=== PATIENT | female | born 1990 | race Caucasian/White ===

== ENCOUNTER 2021-10-07 06:24 | Day surgery (SDC) | payer OTHER ==
[2021-10-06 10:16] VITALS: BMI 30.8
[~2021-10-07 06:24] MED LIST: LACTATED RINGERS 1,000 ML IV SCH; LIDOCAINE 1% (10MG/ML) FOR IV START INTRADERMA PRN
[2021-10-07 06:51] VITALS: RESP 16; TEMP 96.7
[2021-10-07] MEDS ORDERED: PROPOFOL 10 MG/ML 20 ML VIAL IV ONE (07:26)
[2021-10-07] MEDS ORDERED: LIDOCAINE 2% INJ 20 MG/ML (2 ML VIAL) ONE (07:26)
--- NOTE | 2021-10-07 07:50 | P.PCN ---
Date of Procedure: 10/07/21 Procedure(s) Performed: Brief history: Patient is a pleasant 31-year-old white female scheduled for an elective upper endoscopy as well as colonoscopy as a part of evaluation of chronic diarrhea and iron deficiency anemia. He is been having diarrhea for the last 5 years duration. [place] anywhere from 10-12 a day which are loose to watery in consistency but no blood or mucus in the stool. Procedure performed: Esophagogastroduodenoscopy with biopsy Colonoscopy Preoperative diagnosis: Iron deficiency anemia Chronic diarrhea Anesthesia: MAC Procedure: After informed consent was obtained from the patient was brought into the endoscopy unit and IV sedation was administered by anesthesia under continuous monitoring. Initially upper endoscopy was done. The Olympus GF 160 video endoscope was inserted inserted into the mouth and esophagus intubated without any difficulty and was gradually advanced into the stomach and duodenum and carefully examined. The bulb and second part of the duodenum appeared normal. Abscesses were done from the duodenum to rule out celiac disease. The scope was then withdrawn into the stomach adequately insufflated with air and upon careful examination the antrum and linear erosive erythema which was biopsied. The body, cardia and fundus appeared normal. The scope was then withdrawn into the esophagus. The GE junction was located at 40 cm to the incisors. It appeared regular with no erythema erosions or ulcerations. Rest of the esophagus appeared normal. Patient tolerated the procedure well. At this time the patient continued to remain sedation. Initial digital rectal examination was normal. Olympus CF 160 video colonoscope was then inserted into the rectum and gradually advanced to the cecum without any difficulty. Careful examination was performed as the scope was gradually being withdrawn. The prep was excellent. Terminal ileum was intubated and 20 cm visualized and appeared normal. Mucosa of the cecum, ascending colon, transverse colon, descending colon, sigmoid colon and rectum appeared normal. Retroflexion was performed in the rectum and no lesions were noted. Patient tolerated the procedure well. Impression: 1. Upper Endoscopy revealed mild antral gastritis but no evidence of esophagitis or peptic ulcer disease 2. Colonoscopy was within normal limits with no evidence of colitis or colorectal neoplasia Recommendations: Findings of this examination were discussed with the patient as well as her family. She was advised to follow with the biopsy results. Advised to start her on Imodium [id number] as needed for the chronic diarrhea. If she continues to have persistent symptoms she was advised to follow up in office for further management.
[2021-10-07 08:03] VITALS: PULSE 90
[2021-10-07 08:40] VITALS: BP 120/78
== END 2021-10-07 08:40 | disposition home or self-care (01) ==
LOC: ORWHC2ENDO 06:24
PROVIDERS: ATTEND Internal Medicine Gastroenterology
DX: K29.50 Unspecified chronic gastritis without bleeding (principal)
CPT/HCPCS: 43239; 45378; 81025; 88305; J2704; J2001

== ENCOUNTER 2021-12-25 17:47 | Emergency (ER) | payer OTHER ==
[2021-12-25] MEDS ORDERED: ONDANSETRON 4 MG/2 ML VIAL IVP STA (19:20)
[2021-12-25] MEDS ORDERED: SODIUM CHLORIDE 0.9% 500 ML 500 ML IV STA (19:20)
[2021-12-25] MEDS ORDERED: HYDROmorphone 0.5 MG/0.5 ML SYRINGE IVP STA (19:22)
--- NOTE | 2021-12-25 19:25 | ED ---
Abdominal Pain HPI - General Chief Complaint: Abdominal Pain Stated Complaint: abd pain Time Seen by Provider: 12/25/21 19:05 Source: patient, RN notes reviewed, old records reviewed Mode of arrival: ambulatory Limitations: no limitations - History of Present Illness Initial Comments: This is a well-appearing 31-year-old female sitting crosslegged on the cart complaining of right upper quadrant abdominal pain with epigastric pain that started at 11:00 today. Patient states that she is a history of IBS. She has seen her doctor who recommended evaluation of her gallbladder in the past. She denies any fevers, she does have nausea, no vomiting or diarrhea. MD Complaint: abdominal pain -: hour(s) (8) Location: RUQ, epigastric Radiation: back Severity scale (1-10): 9 Quality: sharp Consistency: constant Improves With: nothing Worsens With: nothing Associated Symptoms: nausea - Related Data Home Medications Medication Instructions Recorded Confirmed Ferrous Sulfate [Iron] 325 mg PO DAILY 10/06/21 10/06/21 Multivitamins, Thera [Multivitamin 1 tab PO DAILY 10/06/21 10/06/21 (formulary)] Previous Rx's Medication Instructions Recorded Ibuprofen [Motrin] 600 mg PO Q8HR PRN #30 tab 12/25/21 Allergies Allergy/AdvReac Type Severity Reaction Status Date / Time Latex, Natural Rubber Allergy Swelling Verified 12/25/21 18:25 Review of Systems ROS Statement: Those systems with pertinent positive or pertinent negative responses have been documented in the HPI. ROS Other: All systems not noted in ROS Statement are negative. Past Medical History Additional Past Medical History / Comment(s): ANEMIA, IBS History of Any Multi-Drug Resistant Organisms: None Reported Past Surgical History: No Surgical Hx Reported Past Anesthesia/Blood Transfusion Reactions: Motion Sickness Additional Past Anesthesia/Blood Transfusion Reaction / Comment(s): NO PREVIOUS ANESTH. Past Psychological History: No Psychological Hx Reported Smoking Status: Never smoker Past Alcohol Use History: None Reported Past Drug Use History: Marijuana General Exam Limitations: no limitations General appearance: alert, in no apparent distress Head exam: Present: atraumatic Eye exam: Absent: scleral icterus, conjunctival injection Neck exam: Present: full ROM Respiratory exam: Absent: normal lung sounds bilaterally, respiratory distress, accessory muscle use Cardiovascular Exam: Present: regular rate GI/Abdominal exam: Present: soft, tenderness (Right upper quadrant epigastric). Absent: distended, guarding, rigid Extremities exam: Present: normal capillary refill. Absent: pedal edema Neurological exam: Present: alert, oriented X3 Psychiatric exam: Present: normal affect, normal mood Skin exam: Present: warm, dry, normal color. Absent: cyanosis, diaphoretic Course Vital Signs 12/25/21 12/25/21 18:21 21:00 Temperature 98.1 F 98.6 F Pulse Rate 86 72 Respiratory 16 18 Rate Blood Pressure 145/94 120/81 O2 Sat by Pulse 100 99 Oximetry Medical Decision Making - Medical Decision Making Ultrasound gallbladder shows cholelithiasis without evidence of cholecystitis. Electrolytes are unremarkable. Hemoglobin and hematocrit are stable. Patient was given IV fluids, Zofran and Dilaudid for pain. CBC and CMP unremarkable. Vital signs are stable. Case discussed with Dr. Duff, patient will be directed to follow up with her primary care doctor to have a HIDA scan and follow up with Dr. Leach with GI. Patient is agreeable to this plan of care. Strict return parameters were discussed to return if increased pain, fevers or persistent nausea vomiting. Patient is agreeable to this plan - Lab Data Result diagrams: 12/25/21 19:36 12/25/21 19:36 Lab Results 12/25/21 12/25/21 12/25/21 Range/Units 19:36 19:36 19:36 WBC 11.7 H (3.8-10.6) k/uL RBC 5.08 (3.80-5.40) m/uL Hgb 14.1 (11.4-16.0) gm/dL Hct 43.3 (34.0-46.0) % MCV 85.2 (80.0-100.0) fL MCH 27.8 (25.0-35.0) pg MCHC 32.6 (31.0-37.0) g/dL RDW 12.8 (11.5-15.5) % Plt Count 365 (150-450) k/uL MPV 7.4 Neutrophils % 59 % Lymphocytes % 30 % Monocytes % 3 % Eosinophils % 6 % Basophils % 1 % Neutrophils # 6.9 (1.3-7.7) k/uL Lymphocytes # 3.6 (1.0-4.8) k/uL Monocytes # 0.4 (0-1.0) k/uL Eosinophils # 0.6 (0-0.7) k/uL Basophils # 0.1 (0-0.2) k/uL PT 9.7 (9.0-12.0) sec INR 0.9 (<1.2) APTT 24.8 (22.0-30.0) sec Sodium (137-145) mmol/L Potassium (3.5-5.1) mmol/L Chloride (98-107) mmol/L Carbon Dioxide (22-30) mmol/L Anion Gap mmol/L BUN (7-17) mg/dL Creatinine (0.52-1.04) mg/dL Est GFR (CKD-EPI)AfAm (>60 ml/min/1.73 sqM) Est GFR (CKD-EPI)NonAf (>60 ml/min/1.73 sqM) Glucose (74-99) mg/dL Calcium (8.4-10.2) mg/dL Total Bilirubin (0.2-1.3) mg/dL AST (14-36) U/L ALT (4-34) U/L Alkaline Phosphatase (38-126) U/L Total Protein (6.3-8.2) g/dL Albumin (3.5-5.0) g/dL Amylase (30-110) U/L Lipase (23-300) U/L Urine Color Yellow Urine Appearance Clear (Clear) Urine pH 6.5 (5.0-8.0) Ur Specific [place] 1.024 (1.001-1.035) Urine Protein Negative (Negative) Urine Glucose (UA) Negative (Negative) Urine Ketones Negative (Negative) Urine Blood Negative (Negative) Urine Nitrite Negative (Negative) Urine Bilirubin Negative (Negative) Urine Urobilinogen <2.0 (<2.0) mg/dL Ur Leukocyte Esterase Small H (Negative) Urine RBC 2 (0-5) /hpf Urine WBC 1 (0-5) /hpf Ur Squamous Epith Cells 4 (0-4) /hpf Urine Bacteria Rare H (None) /hpf Urine Mucus Occasional H (None) /hpf 12/25/21 Range/Units 19:36 WBC (3.8-10.6) k/uL RBC (3.80-5.40) m/uL Hgb (11.4-16.0) gm/dL Hct (34.0-46.0) % MCV (80.0-100.0) fL MCH (25.0-35.0) pg MCHC (31.0-37.0) g/dL RDW (11.5-15.5) % Plt Count (150-450) k/uL MPV Neutrophils % % Lymphocytes % % Monocytes % % Eosinophils % % Basophils % % Neutrophils # (1.3-7.7) k/uL Lymphocytes # (1.0-4.8) k/uL Monocytes # (0-1.0) k/uL Eosinophils # (0-0.7) k/uL Basophils # (0-0.2) k/uL PT (9.0-12.0) sec INR (<1.2) APTT (22.0-30.0) sec Sodium 138 (137-145) mmol/L Potassium 4.1 (3.5-5.1) mmol/L Chloride 104 (98-107) mmol/L Carbon Dioxide 22 (22-30) mmol/L Anion Gap 12 mmol/L BUN 10 (7-17) mg/dL Creatinine 0.68 (0.52-1.04) mg/dL Est GFR (CKD-EPI)AfAm >90 (>60 ml/min/1.73 sqM) Est GFR (CKD-EPI)NonAf >90 (>60 ml/min/1.73 sqM) Glucose 107 H (74-99) mg/dL Calcium 9.6 (8.4-10.2) mg/dL Total Bilirubin 0.2 (0.2-1.3) mg/dL AST 28 (14-36) U/L ALT 35 H (4-34) U/L Alkaline Phosphatase 54 (38-126) U/L Total Protein 7.4 (6.3-8.2) g/dL Albumin 4.4 (3.5-5.0) g/dL Amylase 72 (30-110) U/L Lipase 188 (23-300) U/L Urine Color Urine Appearance (Clear) Urine pH (5.0-8.0) Ur Specific [place] (1.001-1.035) Urine Protein (Negative) Urine Glucose (UA) (Negative) Urine Ketones (Negative) Urine Blood (Negative) Urine Nitrite (Negative) Urine Bilirubin (Negative) Urine Urobilinogen (<2.0) mg/dL Ur Leukocyte Esterase (Negative) Urine RBC (0-5) /hpf Urine WBC (0-5) /hpf Ur Squamous Epith Cells (0-4) /hpf Urine Bacteria (None) /hpf Urine Mucus (None) /hpf Disposition Clinical Impression: Cholelithiasis Disposition: HOME SELF-CARE Condition: Good Instructions (If sedation given, give patient instructions): Gallstones (ED) Additional Instructions: Discuss with your primary care doctor a possible HIDA scan for further evaluation of your gallbladder and bile ducts. Follow-up with Dr. Leach for possible cholecystectomy. Return to the emergency room with any fevers, increased pain, or persistent nausea vomiting. Healthy Foods for the Gallbladder: Whether or not you are at risk for gallstones, it's always a good idea to keep your body at a healthy weight and eat a diet that is low in fat and cholesterol, moderate in calories, and high in fiber. All of the following are healthy foods for your gallbladder, as well as the rest of your body: Fresh fruits and vegetables Whole grains (whole-wheat bread, brown rice, oats, bran cereal) Lean meat, poultry, and fish Low-fat dairy products Prescriptions: Ibuprofen [Motrin] 600 mg PO Q8HR PRN #30 tab PRN Reason: Pain Is patient prescribed a controlled substance at d/c from ED?: No Referrals: Holly Kirkland MD [Primary Care Provider] - 1-2 days Time of Disposition: 20:43
[2021-12-25 19:56] LABS: ALT 35 U/L (4-34); AST 28 U/L (14-36); African American GFR (CKD) >90 (>60 ml/min/1.73 sqM); Albumin 4.4 g/dL (3.5-5.0); Alkaline Phosphatase 54 U/L (38-126); Amylase 72 U/L (30-110); Anion Gap 12 mmol/L; Blood Urea Nitrogen 10 mg/dL (7-17); Calcium 9.6 mg/dL (8.4-10.2); Carbon Dioxide 22 mmol/L (22-30); Chloride 104 mmol/L (98-107); Glucose 107 mg/dL (74-99); Lipase 188 U/L (23-300); Non-African American GFR(CKD) >90 (>60 ml/min/1.73 sqM); Potassium 4.1 mmol/L (3.5-5.1); Sodium 138 mmol/L (137-145); Total Bilirubin 0.2 mg/dL (0.2-1.3); Total Protein 7.4 g/dL (6.3-8.2)
[2021-12-25 20:00] LABS: INR 0.9 (<1.2); Partial Thromboplastin Time 24.8 sec (22.0-30.0); Prothrombin Time 9.7 sec (9.0-12.0)
[2021-12-25 20:02] LABS: Basophils # (A) 0.1 k/uL (0-0.2); Basophils % (A) 1 %; Eosinophils # (A) 0.6 k/uL (0-0.7); Eosinophils % (A) 6 %; HCT 43.3 % (34.0-46.0); HGB 14.1 gm/dL (11.4-16.0); Lymphocytes # (A) 3.6 k/uL (1.0-4.8); Lymphocytes % (A) 30 %; MCH 27.8 pg (25.0-35.0); MCHC 32.6 g/dL (31.0-37.0); MCV 85.2 fL (80.0-100.0); Mean Platelet Volume 7.4; Monocytes # (A) 0.4 k/uL (0-1.0); Monocytes % (A) 3 %; Neutrophils # (A) 6.9 k/uL (1.3-7.7); Neutrophils % (A) 59 %; Platelet Count 365 k/uL (150-450); RBC 5.08 m/uL (3.80-5.40); RDW 12.8 % (11.5-15.5); WBC 11.7 k/uL (3.8-10.6)
--- NOTE | 2021-12-25 20:15 | US ---
EXAMINATION TYPE: US gallbladder DATE OF EXAM: 12/25/2021 COMPARISON: NONE CLINICAL HISTORY: ruq pain. RUQ pain with nausea since this morning. TECHNIQUE: Multiple sonographic images of the right upper quadrant are obtained. FINDINGS: EXAM MEASUREMENTS: Liver Length: 16.1 cm Gallbladder Wall: 0.20 cm CBD: 0.46 cm Right Kidney: 11.7 x 5.5 x 4.0 cm REFINERY SUPERINTENDENT NOTES: Pancreas: wnl Liver: wnl Gallbladder: Nonmobile gallstone seen in the neck measuring 1.3 x 1.2 x 1.4 cm Evidence for sonographic Hollis's sign: No CBD: wnl Right Kidney: wnl IMPRESSION: Cholelithiasis without sonographic evidence for acute abnormality or cholecystitis.
[2021-12-25 20:31] LABS: Appearance,Urine Clear (Clear); Bacteria,Urine Rare /hpf; Bilirubin,Urine Negative (Negative); Blood,Urine Negative (Negative); Color,Urine Yellow; Glucose,Urine (UA) Negative (Negative); Ketones,Urine Negative (Negative); Leukocyte Esterase,Urine Small (Negative); Mucus,Urine Occasional /hpf; Nitrite,Urine Negative (Negative); PH, Urine 6.5 (5.0-8.0); Protein,Urine Negative (Negative); RBC,Urine 2 /hpf (0-5); Specific Gravity,Urine 1.024 (1.001-1.035); Squamous Epithelial Cell,Urine 4 /hpf (0-4); Urobilinogen,Urine <2.0 mg/dL (<2.0); WBC,Urine 1 /hpf (0-5)
[2021-12-25 21:05] VITALS: BP 120/81; PULSE 72; RESP 18; TEMP 98.6
== END 2021-12-25 21:06 | disposition home or self-care (01) ==
LOC: EC 17:47
DX: K80.20 Calculus of gallbladder without cholecystitis without obstruction (principal); Z91.040 Latex allergy status
CPT/HCPCS: 36415; 80053; 82150; 83690; 85025; 85610; 85730; 81001; 76705; 99284; 96374; 96375; 96361; J2405; J1170

== ENCOUNTER → 2022-02-02 | Outpatient (CLI) | payer OTHER ==
--- NOTE | 2022-02-02 13:54 | NM ---
EXAMINATION TYPE: NM hepatobiliary wo EF DATE OF EXAM: 02/02/2022 COMPARISON: NONE INDICATION: Cholelithiasis TECHNIQUE: After the intravenous administration of 4.97 mCi Tc 99m Mebrofenin hepatobiliary scintigra phy is performed. Images were obtained immediately post injection. FINDINGS: There is prompt uptake and excretion of radiotracer by the liver. Extrahepatic ducts are identified at less than 2 minutes. The gallbladder is not visualized within 120 minutes or on 4 hour delays. Small bowel activity is noted within 2 minutes. IMPRESSION: 1. Nonvisualization of the gallbladder. Cystic duct obstruction should be considered. A Yellow level critical message alert has been initiated for Holly Kirkland MD via the [employer] Critical Results System on 02/02/2022 10:52 AM. This message alert has been sent to Holly Kirkland MD via the preferences provided by the clinician for the receipt of Radiology Critical Findings. Mess age ID [id number].
== END | disposition home or self-care (01) ==
LOC: RADNMMAIN 06:56
PROVIDERS: ATTEND Family Medicine
DX: K80.80 Other cholelithiasis without obstruction (principal)
CPT/HCPCS: 78226; A9537

== ENCOUNTER 2022-02-03 18:55 | Emergency (ER) | payer OTHER ==
[2022-02-03 19:56] VITALS: BP 144/92; PULSE 100; RESP 20; TEMP 98.2
[2022-02-03] MEDS ORDERED: KETOROLAC 15 MG/ML 1 ML VIAL IVP STA (21:35)
[2022-02-03] MEDS ORDERED: MORPHINE SULFATE 2 MG/ML SYRINGE IVP STA (21:35)
--- NOTE | 2022-02-03 21:52 | ED ---
Abdominal Pain HPI - General Chief Complaint: Abdominal Pain Stated Complaint: PCP sent for emergency surgery Time Seen by Provider: 02/03/22 21:26 Source: patient Mode of arrival: ambulatory Limitations: no limitations - History of Present Illness Initial Comments: This patient is a 31-year-old woman who states she was told to come to the hospital by her physician who had received a call about the HIDA scan that the patient had today. The patient has been having weeks of upper abdominal pain that radiates to her back. She had an ultrasound that indicated she had gallstones, and then she went for HIDA scan today. The patient also saw Dr. Bartlett, to schedule surgery to have her gallbladder removed. The patient states that her physician Dr. Kirkland called her tonight and told her that she should go to the emergency department as the HIDA scan did not show her gallbladder. The patient states that she does continue to have the upper abdominal pain radiating to the back. She is not having fever or chills. There has been some nausea and no vomiting. She has not had change in bowel movements or urination. She states that she does have tramadol she's been taking at home but it really is not helping her pain much at all. MD Complaint: abdominal pain -: week(s) Location: RUQ, epigastric Radiation: back Migration to: no migration Severity: moderate Quality: aching Consistency: intermittent Improves With: nothing Worsens With: nothing Associated Symptoms: denies other symptoms - Related Data Home Medications Medication Instructions Recorded Confirmed Ferrous Sulfate [Iron] 325 mg PO DAILY 10/06/21 10/06/21 Multivitamins, Thera [Multivitamin 1 tab PO DAILY 10/06/21 10/06/21 (formulary)] Previous Rx's Medication Instructions Recorded Ibuprofen [Motrin] 600 mg PO Q8HR PRN #30 tab 12/25/21 HYDROcodone/APAP 5-325MG [[place] 1 tab PO Q4HR PRN 3 Days #18 tab 02/03/22 5-325] Allergies Allergy/AdvReac Type Severity Reaction Status Date / Time Latex, Natural Rubber Allergy Swelling Verified 02/03/22 19:56 Review of Systems ROS Statement: Those systems with pertinent positive or pertinent negative responses have been documented in the HPI. ROS Other: All systems not noted in ROS Statement are negative. Constitutional: Denies: fever, chills Respiratory: Denies: cough, dyspnea Cardiovascular: Denies: chest pain, palpitations Gastrointestinal: Reports: abdominal pain, nausea. Denies: vomiting, diarrhea, constipation, melena, hematochezia Genitourinary: Denies: dysuria, frequency, hematuria Musculoskeletal: Denies: back pain Skin: Denies: rash Neurological: Denies: headache, weakness, numbness Past Medical History Additional Past Medical History / Comment(s): ANEMIA, IBS History of Any Multi-Drug Resistant Organisms: None Reported Past Surgical History: No Surgical Hx Reported Past Anesthesia/Blood Transfusion Reactions: Motion Sickness Additional Past Anesthesia/Blood Transfusion Reaction / Comment(s): NO PREVIOUS ANESTH. Past Psychological History: No Psychological Hx Reported Smoking Status: Never smoker Past Alcohol Use History: None Reported Past Drug Use History: Marijuana General Exam Limitations: no limitations General appearance: alert, in no apparent distress Head exam: Present: atraumatic, normocephalic Eye exam: Present: normal appearance. Absent: scleral icterus, conjunctival injection Neck exam: Present: normal inspection Respiratory exam: Present: normal lung sounds bilaterally. Absent: respiratory distress, wheezes, rales, rhonchi, stridor Cardiovascular Exam: Present: regular rate, normal rhythm, normal heart sounds. Absent: systolic murmur, diastolic murmur, rubs, gallop GI/Abdominal exam: Present: soft, tenderness. Absent: distended, guarding, rebound, rigid, mass, pulsatile mass, hernia Extremities exam: Present: normal inspection, normal capillary refill. Absent: pedal edema, calf tenderness Back exam: Present: normal inspection. Absent: CVA tenderness (R), CVA tenderness (L) Neurological exam: Present: alert Skin exam: Present: warm, dry, intact, normal color. Absent: rash Course Vital Signs 02/03/22 19:54 Temperature 98.2 F Pulse Rate 100 Respiratory 20 Rate Blood Pressure 144/92 O2 Sat by Pulse 98 Oximetry Medical Decision Making - Medical Decision Making Patient's 31-year-old woman with abdominal pain and HIDA scan showing obst ruction. I went over the results with Dr. Bartlett, who states that she will have the patient's surgical date moved forward. Patient is to call the morning to reschedule. On reevaluation, patient has had good relief of symptoms with the analgesic here. - Lab Data Result diagrams: 02/03/22 21:50 09/20/22 21:50 Lab Results 02/03/22 02/03/22 02/03/22 Range/Units 21:50 21:50 21:50 WBC 12.0 H (3.8-10.6) k/uL RBC 4.94 (3.80-5.40) m/uL Hgb 13.9 (11.4-16.0) gm/dL Hct 42.2 (34.0-46.0) % MCV 85.4 (80.0-100.0) fL MCH 28.0 (25.0-35.0) pg MCHC 32.8 (31.0-37.0) g/dL RDW 12.8 (11.5-15.5) % Plt Count 322 (150-450) k/uL MPV 7.7 Neutrophils % 49 % Lymphocytes % 39 % Monocytes % 3 % Eosinophils % 6 % Basophils % 1 % Neutrophils # 5.9 (1.3-7.7) k/uL Lymphocytes # 4.7 (1.0-4.8) k/uL Monocytes # 0.4 (0-1.0) k/uL Eosinophils # 0.7 (0-0.7) k/uL Basophils # 0.1 (0-0.2) k/uL Sodium (137-145) mmol/L Potassium (3.5-5.1) mmol/L Chloride (98-107) mmol/L Carbon Dioxide (22-30) mmol/L Anion Gap mmol/L BUN (7-17) mg/dL Creatinine (0.52-1.04) mg/dL Est GFR (CKD-EPI)AfAm (>60 ml/min/1.73 sqM) Est GFR (CKD-EPI)NonAf (>60 ml/min/1.73 sqM) Glucose (74-99) mg/dL Calcium (8.4-10.2) mg/dL Total Bilirubin (0.2-1.3) mg/dL AST (14-36) U/L ALT (4-34) U/L Alkaline Phosphatase (38-126) U/L Total Protein (6.3-8.2) g/dL Albumin (3.5-5.0) g/dL Amylase (30-110) U/L Lipase (23-300) U/L Urine Color Yellow Urine Appearance Clear (Clear) Urine pH 6.0 (5.0-8.0) Ur Specific [place] 1.027 (1.001-1.035) Urine Protein Trace H (Negative) Urine Glucose (UA) Negative (Negative) Urine Ketones Negative (Negative) Urine Blood Negative (Negative) Urine Nitrite Negative (Negative) Urine Bilirubin Negative (Negative) Urine Urobilinogen <2.0 (<2.0) mg/dL Ur Leukocyte Esterase Negative (Negative) Urine HCG, Qual Not Detected (Not Detectd) 02/03/22 Range/Units 21:50 WBC (3.8-10.6) k/uL RBC (3.80-5.40) m/uL Hgb (11.4-16.0) gm/dL Hct (34.0-46.0) % MCV (80.0-100.0) fL MCH (25.0-35.0) pg MCHC (31.0-37.0) g/dL RDW (11.5-15.5) % Plt Count (150-450) k/uL MPV Neutrophils % % Lymphocytes % % Monocytes % % Eosinophils % % Basophils % % Neutrophils # (1.3-7.7) k/uL Lymphocytes # (1.0-4.8) k/uL Monocytes # (0-1.0) k/uL Eosinophils # (0-0.7) k/uL Basophils # (0-0.2) k/uL Sodium 136 L (137-145) mmol/L Potassium 3.6 (3.5-5.1) mmol/L Chloride 102 (98-107) mmol/L Carbon Dioxide 22 (22-30) mmol/L Anion Gap 12 mmol/L BUN 10 (7-17) mg/dL Creatinine 0.68 (0.52-1.04) mg/dL Est GFR (CKD-EPI)AfAm >90 (>60 ml/min/1.73 sqM) Est GFR (CKD-EPI)NonAf >90 (>60 ml/min/1.73 sqM) Glucose 91 (74-99) mg/dL Calcium 9.5 (8.4-10.2) mg/dL Total Bilirubin 0.4 (0.2-1.3) mg/dL AST 22 (14-36) U/L ALT 28 (4-34) U/L Alkaline Phosphatase 53 (38-126) U/L Total Protein 6.9 (6.3-8.2) g/dL Albumin 4.2 (3.5-5.0) g/dL Amylase 59 (30-110) U/L Lipase 80 (23-300) U/L Urine Color Urine Appearance (Clear) Urine pH (5.0-8.0) Ur Specific [place] (1.001-1.035) Urine Protein (Negative) Urine Glucose (UA) (Negative) Urine Ketones (Negative) Urine Blood (Negative) Urine Nitrite (Negative) Urine Bilirubin (Negative) Urine Urobilinogen (<2.0) mg/dL Ur Leukocyte Esterase (Negative) Urine HCG, Qual (Not Detectd) Disposition Clinical Impression: Abdominal pain Disposition: HOME SELF-CARE Condition: Good Instructions (If sedation given, give patient instructions): Abdominal Pain (ED) Additional Instructions: As we discussed, call the office of Dr. Bartlett to have your surgical date moved up. Should any of the symptoms we discussed develop return immediately. Prescriptions: HYDROcodone/APAP 5-325MG [[place] 5-325] 1 tab PO Q4HR PRN 3 Days #18 tab PRN Reason: Pain Is patient prescribed a controlled substance at d/c from ED?: No Referrals: Holly Kirkland MD [Primary Care Provider] - 1-2 days Asha Bartlett DO [Doctor of Osteopathic Medicine] - 1-2 days
[2022-02-03 22:08] LABS: Basophils # (A) 0.1 k/uL (0-0.2); Basophils % (A) 1 %; Eosinophils # (A) 0.7 k/uL (0-0.7); Eosinophils % (A) 6 %; HCT 42.2 % (34.0-46.0); HGB 13.9 gm/dL (11.4-16.0); Lymphocytes # (A) 4.7 k/uL (1.0-4.8); Lymphocytes % (A) 39 %; MCHC 32.8 g/dL (31.0-37.0); MCV 85.4 fL (80.0-100.0); Mean Platelet Volume 7.7; Monocytes # (A) 0.4 k/uL (0-1.0); Monocytes % (A) 3 %; Neutrophils # (A) 5.9 k/uL (1.3-7.7); Neutrophils % (A) 49 %; Platelet Count 322 k/uL (150-450); RBC 4.94 m/uL (3.80-5.40); RDW 12.8 % (11.5-15.5)
[2022-02-03 22:26] LABS: ALT 28 U/L (4-34); AST 22 U/L (14-36); African American GFR (CKD) >90 (>60 ml/min/1.73 sqM); Albumin 4.2 g/dL (3.5-5.0); Alkaline Phosphatase 53 U/L (38-126); Amylase 59 U/L (30-110); Anion Gap 12 mmol/L; Appearance,Urine Clear (Clear); Bilirubin,Urine Negative (Negative); Blood Urea Nitrogen 10 mg/dL (7-17); Blood,Urine Negative (Negative); Calcium 9.5 mg/dL (8.4-10.2); Carbon Dioxide 22 mmol/L (22-30); Chloride 102 mmol/L (98-107); Color,Urine Yellow; Glucose 91 mg/dL (74-99); Glucose,Urine (UA) Negative (Negative); Ketones,Urine Negative (Negative); Leukocyte Esterase,Urine Negative (Negative); Lipase 80 U/L (23-300); Nitrite,Urine Negative (Negative); Non-African American GFR(CKD) >90 (>60 ml/min/1.73 sqM); Potassium 3.6 mmol/L (3.5-5.1); Protein,Urine Trace (Negative); Sodium 136 mmol/L (137-145); Specific Gravity,Urine 1.027 (1.001-1.035); Total Bilirubin 0.4 mg/dL (0.2-1.3); Total Protein 6.9 g/dL (6.3-8.2); Urobilinogen,Urine <2.0 mg/dL (<2.0)
== END 2022-02-03 22:57 | disposition home or self-care (01) ==
LOC: EC 18:55
DX: R10.13 Epigastric pain (principal); F12.90 Cannabis use, unspecified, uncomplicated; Z91.040 Latex allergy status; Z79.899 Other long term (current) drug therapy
CPT/HCPCS: 36415; 80053; 82150; 83690; 85025; 81003; 81025; 99284; 96374; 96375; J2270; J1885

== ENCOUNTER 2022-02-09 12:54 | Day surgery (SDC) | payer OTHER ==
[~2022-02-09 12:54] MED LIST changes: +DEXAMETHASONE SOD PHOSPHATE 4 MG/ML 1 ML VIAL IV ONE; -LACTATED RINGERS 1,000 ML IV SCH; -LIDOCAINE 1% (10MG/ML) FOR IV START INTRADERMA PRN; +MIDAZOLAM 2 MG/2 ML VIAL IV PRN; +ONDANSETRON 4 MG/2 ML VIAL IVP ONE; +SCOPOLAMINE 1 MG/72 HR PATCH TRANSDERM ONE
[2022-02-09] MEDS: LACTATED RINGERS 1,000 ML IV SCH ×2 (13:30→14:12)
[2022-02-09] MEDS ORDERED: PROPOFOL 10 MG/ML 20 ML VIAL IV ONE (14:09)
[2022-02-09] MEDS ORDERED: MIDAZOLAM 2 MG/2 ML VIAL ONE (14:09)
[2022-02-09] MEDS ORDERED: SUCCINYLCHOLINE CHLORIDE 200 MG/10 ML VIAL IV ONE (14:09)
[2022-02-09] MEDS ORDERED: LIDOCAINE 2% INJ 20 MG/ML (2 ML VIAL) ONE (14:09)
[2022-02-09] MEDS ORDERED: fentaNYL (PF) 50 MCG/ML 2 ML AMP ONE (14:09)
[2022-02-09] MEDS ORDERED: ROCURONIUM 10 MG/ML (5 ML VIAL) IV ONE (14:09)
[2022-02-09] MEDS ORDERED: GLYCOPYRROLATE 0.2 MG/ML 2 ML VIAL ONE (14:09)
[2022-02-09] MEDS ORDERED: NEOSTIGMINE 1 MG/ML 10 ML VIAL ONE (14:09)
[2022-02-09] MEDS ORDERED: KETOROLAC 15 MG/ML 1 ML VIAL ONE (14:09)
[2022-02-09] MEDS ORDERED: BUPIVACAIN-EPI 0.25%-1:200,000 30 ML VIAL SQ ONE (14:14)
--- NOTE | 2022-02-09 15:16 | P.OP ---
Date of Procedure: 02/09/22 Preoperative Diagnosis: Cholelithiasis, nonvisualization of gallbladder on HIDA scan Postoperative Diagnosis: Cholelithiasis, nonvisualization of gallbladder on HIDA scan Procedure(s) Performed: Laparoscopic cholecystectomy Anesthesia: ISIDRO Surgeon: Asha Bartlett Estimated Blood Loss (ml): 10 Pathology: other Condition: stable Disposition: PACU Indications for Procedure: Patient presented with abdominal pain. Ultrasound showed cholelithiasis. A HIDA scan was performed showing nonvisualization of the gallbladder Description of Procedure: Patient's taken the operative suite where she is prepped and draped in the usual sterile manner under general endotracheal anesthetic. An infraumbilical incision was made and a Veress needle was placed into the abdominal cavity. Pneumoperitoneum was established with CO2 gas. Sites are chosen for accessory trochars needs are placed through small skin incisions. The abdominal and pelvic contents were examined. The liver, diaphragm, large and small bowel were all grossly normal where they were seen. The fundus of the gallbladder is grasped and retracted superiorly. Nicole's pouch is identified, it is grasped and retracted laterally. The cystic artery and cystic duct are dissected free. They're triply clipped and cut. The gallbladder is then dissected free from the liver bed. Small bleeding points were controlled with electrocautery. The gallbladder is removed through the umbilical port site. The liver bed is reexamined and noted be hemostatic. The pneumoperitoneum was released. The trochars were removed. The fascia at the umbilicus was closed with 0 Vicryl. The skin incisions were closed with 4-0 Vicryl in a subcuticular manner. Steri- Strips and dressings were applied. She tolerated the procedure without difficulty and was taken to recovery room in satisfactory condition. According to or personnel, all counts are correct. Plan - Discharge Summary Discharge Rx Participant: No New Discharge Prescriptions: New HYDROcodone/APAP 5-325MG [[place] 5-325] 1 - 2 tab PO Q4H PRN #15 tab PRN Reason: Pain No Action Ferrous Sulfate [Iron] 325 mg PO DAILY Ibuprofen [Motrin] 600 mg PO Q8HR PRN #30 tab PRN Reason: Pain HYDROcodone/APAP 5-325MG [[place] 5-325] 1 tab PO Q4HR PRN 3 Days #18 tab PRN Reason: Pain Multivitamins, Thera [Multivitamin (formulary)] 1 tab PO DAILY traMADol HCl [Ultram] 1 tab PO BID PRN PRN Reason: Pain Discharge Medication List Ferrous Sulfate [Iron] 325 mg PO DAILY 10/06/21 [History] Multivitamins, Thera [Multivitamin (formulary)] 1 tab PO DAILY 10/06/21 [History] Ibuprofen [Motrin] 600 mg PO Q8HR PRN #30 tab 12/25/21 [Rx] HYDROcodone/APAP 5-325MG [[place] 5-325] 1 tab PO Q4HR PRN 3 Days #18 tab 02/03/22 [Rx] traMADol HCl [Ultram] 1 tab PO BID PRN 02/06/22 [History] HYDROcodone/APAP 5-325MG [[place] 5-325] 1 - 2 tab PO Q4H PRN #15 tab 02/09/22 [Rx] Follow up Appointment(s)/Referral(s): Asha Bartlett DO [Doctor of Osteopathic Medicine] - 2 Weeks Patient Instructions/Handouts: *Surgery [facility] - Scopalamine Patch Instructions Activity/Diet/Wound Care/Special Instructions: Ice to the incision for the next 24-48 hours. The dressings on until Wednesday, then may be be removed and you may shower. No tub bath or swimming for 1 week. Expect some bruising by the bellybutton. Low-fat diet. Call if questions or concerns Discharge Disposition: HOME SELF-CARE
[2022-02-09] MEDS: HYDROmorphone 0.5 MG/0.5 ML SYRINGE IVP PRN ×2 (15:33→15:58)
[2022-02-09] MEDS ORDERED: ONDANSETRON 4 MG/2 ML VIAL IVP ONE (15:33)
[2022-02-09] MEDS ORDERED: LACTATED RINGERS 1,000 ML IV ONE ×2 (15:47)
[2022-02-09 16:07] VITALS: TEMP 98.2
[2022-02-09] MEDS ORDERED: HYDROcodone/APAP 5-325MG 1 EACH TAB ONE (16:39)
[2022-02-09] MEDS ORDERED: HYDROcodone/APAP 5-325MG 1 EACH TAB PO ONE (16:40)
[2022-02-09 16:42] VITALS: RESP 20
[2022-02-09 16:54] VITALS: BP 111/75; PULSE 97
== END 2022-02-09 17:21 | disposition home or self-care (01) ==
LOC: OR 12:54
PROVIDERS: ATTEND Surgery
DX: K80.10 Calculus of gallbladder with chronic cholecystitis without obstruction (principal); D64.9 Anemia, unspecified; K58.9 Irritable bowel syndrome, unspecified; F41.9 Anxiety disorder, unspecified; F12.90 Cannabis use, unspecified, uncomplicated; Z79.52 Long term (current) use of systemic steroids; Z79.83 Long term (current) use of bisphosphonates; Z79.891 Long term (current) use of opiate analgesic; Z91.040 Latex allergy status
CPT/HCPCS: 47562; 81025; 88304; J2250; J0330; J1100; J2710; J0690; J2405; J3010; J1885; J2704; J1170; J2001

== ENCOUNTER 2022-02-11 22:39 | Observation (INO) | payer OTHER ==
[2022-02-11 23:40] LABS: Basophils # (A) 0.1 k/uL (0-0.2); Basophils % (A) 0 %; Eosinophils # (A) 0.1 k/uL (0-0.7); Eosinophils % (A) 1 %; HCT 41.4 % (34.0-46.0); HGB 13.8 gm/dL (11.4-16.0); Lymphocytes # (A) 2.3 k/uL (1.0-4.8); Lymphocytes % (A) 17 %; MCH 28.1 pg (25.0-35.0); MCHC 33.3 g/dL (31.0-37.0); MCV 84.4 fL (80.0-100.0); Mean Platelet Volume 7.6; Monocytes # (A) 0.4 k/uL (0-1.0); Monocytes % (A) 3 %; Neutrophils # (A) 10.9 k/uL (1.3-7.7); Neutrophils % (A) 79 %; Platelet Count 368 k/uL (150-450); RBC 4.91 m/uL (3.80-5.40); RDW 12.4 % (11.5-15.5); WBC 13.8 k/uL (3.8-10.6)
[2022-02-11 23:54] LABS: ALT 76 U/L (4-34); AST 102 U/L (14-36); African American GFR (CKD) >90 (>60 ml/min/1.73 sqM); Albumin 4.3 g/dL (3.5-5.0); Alkaline Phosphatase 71 U/L (38-126); Amylase 43 U/L (30-110); Anion Gap 15 mmol/L; Blood Urea Nitrogen 7 mg/dL (7-17); Calcium 9.6 mg/dL (8.4-10.2); Carbon Dioxide 23 mmol/L (22-30); Chloride 99 mmol/L (98-107); Glucose 119 mg/dL (74-99); Lipase 43 U/L (23-300); Non-African American GFR(CKD) >90 (>60 ml/min/1.73 sqM); Potassium 3.9 mmol/L (3.5-5.1); Sodium 137 mmol/L (137-145); Total Bilirubin 0.4 mg/dL (0.2-1.3); Total Protein 7.2 g/dL (6.3-8.2)
[2022-02-12] MEDS ORDERED: ONDANSETRON 4 MG/2 ML VIAL IVP STA
[2022-02-12] MEDS ORDERED: PANTOPRAZOLE 40 MG/10 ML VIAL IVP STA
--- NOTE | 2022-02-12 00:02 | ED ---
Nausea/Vomiting/Diarrhea HPI - General Chief complaint: Nausea/Vomiting/Diarrhea Stated complaint: PO surgery,Vomiting,Pain,Passing out Source: patient, RN notes reviewed, old records reviewed Mode of arrival: ambulatory Limitations: no limitations - History of Present Illness Initial comments: This is a 31-year-old female DF for evaluation of pain control. Recent gallbladder surgery. Patient presents today for postoperative pain. Positive nausea no vomiting can't take medications at home. No fevers, no other these her same symptoms that she was having prior to gallbladder removal MD complaint: nausea, vomiting, abdominal pain -: days(s) Description of Vomiting: food contents Description of Diarrhea: water, mucous Associated Abdominal Pain: Yes Location: diffuse Radiation: none Severity: moderate Severity scale (1-10): 7 Quality: cramping, stabbing, aching Consistency: constant Improves with: none Context: recent surgery/procedure Associated Symptoms: denies other symptoms - Related Data Home Medications Medication Instructions Recorded Confirmed Ferrous Sulfate [Iron] 325 mg PO DAILY 10/06/21 02/12/22 Multivitamins, Thera [Multivitamin 1 tab PO DAILY 10/06/21 02/12/22 (formulary)] traMADol HCl [Ultram] 50 mg PO QID PRN 02/06/22 02/12/22 Ibuprofen [Motrin] 600 mg PO Q8H PRN 02/12/22 02/12/22 Omeprazole 40 mg PO DAILY 02/12/22 02/12/22 Ondansetron Odt [Zofran Odt] 4 mg PO Q6H PRN 02/12/22 02/12/22 Previous Rx's Medication Instructions Recorded Naproxen [Naprosyn] 500 mg PO BID #60 tab 02/13/22 Ondansetron [Zofran] 4 mg PO Q8HR PRN #15 tab 02/13/22 traMADol HCL 1 - 2 mg PO Q6HR PRN #30 tablet 02/13/22 Allergies Allergy/AdvReac Type Severity Reaction Status Date / Time Latex, Natural Rubber Allergy Swelling @ Verified 02/12/22 07:41 contact Review of Systems ROS Statement: Those systems with pertinent positive or pertinent negative responses have been documented in the HPI. ROS Other: All systems not noted in ROS Statement are negative. Past Medical History Additional Past Medical History / Comment(s): ANEMIA, IBS History of Any Multi-Drug Resistant Organisms: None Reported Past Surgical History: No Surgical Hx Reported Past Anesthesia/Blood Transfusion Reactions: Motion Sickness Additional Past Anesthesia/Blood Transfusion Reaction / Comment(s): NO PREVIOUS ANESTH. Past Psychological History: Anxiety Smoking Status: Never smoker Past Alcohol Use History: None Reported Past Drug Use History: Marijuana - Past Family History Mother Family Medical History: No Reported History Father Family Medical History: COPD Additional Family Medical History / Comment(s): ulcers General Exam Limitations: no limitations General appearance: alert, in no apparent distress, anxious Head exam: Present: atraumatic, normocephalic, normal inspection Eye exam: Present: normal appearance, PERRL, EOMI. Absent: scleral icterus, conjunctival injection, periorbital swelling ENT exam: Present: normal exam, mucous membranes moist Neck exam: Present: normal inspection. Absent: tenderness, meningismus, lymphadenopathy Respiratory exam: Present: normal lung sounds bilaterally. Absent: respiratory distress, wheezes, rales, rhonchi, stridor Cardiovascular Exam: Present: regular rate, normal rhythm, normal heart sounds. Absent: systolic murmur, diastolic murmur, rubs, gallop, clicks GI/Abdominal exam: Present: soft, normal bowel sounds. Absent: distended, tenderness, guarding, rebound, rigid Extremities exam: Present: normal inspection, full ROM, normal capillary refill. Absent: tenderness, pedal edema, joint swelling, calf tenderness Back exam: Present: normal inspection Neurological exam: Present: alert, oriented X3, CN II-XII intact Psychiatric exam: Present: normal affect, normal mood Skin exam: Present: warm, dry, intact, normal color. Absent: rash Course Vital Signs 02/11/22 02/12/22 02/12/22 22:58 02:32 06:00 Temperature 98.7 F Pulse Rate 89 100 104 H Pulse Rate [ Left] Respiratory 16 22 18 Rate Blood Pressure 130/89 129/76 118/81 Blood Pressure [Left Arm] O2 Sat by Pulse 98 99 95 Oximetry 02/12/22 02/12/22 02/12/22 07:59 10:38 13:36 Temperature 98.4 F 98.2 F Pulse Rate 101 H 92 94 Pulse Rate [ Left] Respiratory 18 18 18 Rate Blood Pressure 116/74 124/75 126/72 Blood Pressure [Left Arm] O2 Sat by Pulse 98 100 100 Oximetry 02/12/22 15:00 Temperature 98.1 F Pulse Rate Pulse Rate [ 87 Left] Respiratory 17 Rate Blood Pressure Blood Pressure 116/79 [Left Arm] O2 Sat by Pulse 97 Oximetry - Reevaluation(s) Reevaluation #1: Medical record is reviewed Symptoms have been improved here in the ER Patient informed results and questions answered Medical Decision Making - Medical Decision Making 31 female with postoperative abdominal pain similar complaints prior to surgery. Patient be admitted for surgical evaluation pain and management and symptomatic improvement - Lab Data Result diagrams: 02/13/22 07:41 02/13/22 07:41 Lab Results 02/11/22 02/11/22 02/11/22 Range/Units 23:10 23:10 23:10 WBC 13.8 H (3.8-10.6) k/uL RBC 4.91 (3.80-5.40) m/uL Hgb 13.8 (11.4-16.0) gm/dL Hct 41.4 (34.0-46.0) % MCV 84.4 (80.0-100.0) fL MCH 28.1 (25.0-35.0) pg MCHC 33.3 (31.0-37.0) g/dL RDW 12.4 (11.5-15.5) % Plt Count 368 (150-450) k/uL MPV 7.6 Neutrophils % 79 % Lymphocytes % 17 % Monocytes % 3 % Eosinophils % 1 % Basophils % 0 % Neutrophils # 10.9 H (1.3-7.7) k/uL Lymphocytes # 2.3 (1.0-4.8) k/uL Monocytes # 0.4 (0-1.0) k/uL Eosinophils # 0.1 (0-0.7) k/uL Basophils # 0.1 (0-0.2) k/uL Sodium 137 (137-145) mmol/L Potassium 3.9 (3.5-5.1) mmol/L Chloride 99 (98-107) mmol/L Carbon Dioxide 23 (22-30) mmol/L Anion Gap 15 mmol/L BUN 7 (7-17) mg/dL Creatinine 0.59 (0.52-1.04) mg/dL Est GFR (CKD-EPI)AfAm >90 (>60 ml/min/1.73 sqM) Est GFR (CKD-EPI)NonAf >90 (>60 ml/min/1.73 sqM) Glucose 119 H (74-99) mg/dL Plasma Lactic Acid [place] 1.6 (0.7-2.0) mmol/L Calcium 9.6 (8.4-10.2) mg/dL Phosphorus (2.5-4.5) mg/dL Magnesium (1.6-2.3) mg/dL Total Bilirubin 0.4 (0.2-1.3) mg/dL AST 102 H (14-36) U/L ALT 76 H (4-34) U/L Alkaline Phosphatase 71 (38-126) U/L Total Protein 7.2 (6.3-8.2) g/dL Albumin 4.3 (3.5-5.0) g/dL Amylase 43 (30-110) U/L Lipase 43 (23-300) U/L 02/12/22 Range/Units 01:02 WBC (3.8-10.6) k/uL RBC (3.80-5.40) m/uL Hgb (11.4-16.0) gm/dL Hct (34.0-46.0) % MCV (80.0-100.0) fL MCH (25.0-35.0) pg MCHC (31.0-37.0) g/dL RDW (11.5-15.5) % Plt Count (150-450) k/uL MPV Neutrophils % % Lymphocytes % % Monocytes % % Eosinophils % % Basophils % % Neutrophils # (1.3-7.7) k/uL Lymphocytes # (1.0-4.8) k/uL Monocytes # (0-1.0) k/uL Eosinophils # (0-0.7) k/uL Basophils # (0-0.2) k/uL Sodium (137-145) mmol/L Potassium (3.5-5.1) mmol/L Chloride (98-107) mmol/L Carbon Dioxide (22-30) mmol/L Anion Gap mmol/L BUN (7-17) mg/dL Creatinine (0.52-1.04) mg/dL Est GFR (CKD-EPI)AfAm (>60 ml/min/1.73 sqM) Est GFR (CKD-EPI)NonAf (>60 ml/min/1.73 sqM) Glucose (74-99) mg/dL Plasma Lactic Acid [place] (0.7-2.0) mmol/L Calcium (8.4-10.2) mg/dL Phosphorus 3.8 (2.5-4.5) mg/dL Magnesium 1.8 (1.6-2.3) mg/dL Total Bilirubin (0.2-1.3) mg/dL AST (14-36) U/L ALT (4-34) U/L Alkaline Phosphatase (38-126) U/L Total Protein (6.3-8.2) g/dL Albumin (3.5-5.0) g/dL Amylase (30-110) U/L Lipase (23-300) U/L Disposition Clinical Impression: Abdominal pain, Dehydration, Nausea & vomiting, Postoperative pain Disposition: ADMITTED IP TO THIS [facility] Condition: Fair Is patient prescribed a controlled substance at d/c from ED?: No Time of Disposition: 03:00
[2022-02-12] MEDS ORDERED: SODIUM CHLORIDE 0.9% 1,000 ML IV STA (00:39)
[2022-02-12] MEDS ORDERED: SODIUM CHLORIDE 0.9% 500 ML 500 ML IV STA (00:39)
[2022-02-12 01:39] LABS: Magnesium 1.8 mg/dL (1.6-2.3); Phosphorus 3.8 mg/dL (2.5-4.5)
[2022-02-12] MEDS ORDERED: MORPHINE SULFATE 4 MG/ML SYRINGE IVP STA (01:42)
[2022-02-12] MEDS ORDERED: HYDROmorphone 1 MG/ML 1 ML SYRINGE IVP STA (02:11)
--- NOTE | 2022-02-12 02:19 | CT ---
EXAMINATION TYPE: CT abdomen pelvis wo con DATE OF EXAM: 02/12/2022 COMPARISON: HISTORY: severe upper abdominal pain. Pt. had GB removed on 02-09-22. no prior on PACS CT DLP: 649.2 mGycm Automated exposure control for dose reduction was used. Images obtained from the diaphragm to the floor the pelvis without contrast. There is some pleural thickening and atelectasis right posterior lung base. Heart size is normal. No pericardial effusion. There are clips from cholecystectomy. Liver spleen stomach pancreas appear intact. The bile ducts are not dilated. There is no adrenal mass. Kidneys have normal size. No hydronephrosis. Ureters are not dilated. No re troperitoneal adenopathy. Bladder distends smoothly. No inguinal hernia. No free fluid in the pelvis. No pelvic mass. Uterus is retroverted. Appendix appears normal. There is no mesenteric edema. No ascites or free air. No sign of a bowel obstruction. The lumbar vert ebrae have normal spacing and alignment. Posterior elements are intact. No compression fracture. Face t joints are intact. The bony pelvis is intact. The hip joints are intact. There is a 2.5 cm fat-cont aining umbilical hernia. IMPRESSION: Normal appendix. No acute abnormality in the abdomen pelvis. There is some mild atelectasis at the ri ght posterior lung base. No free fluid. No evidence of a bile leak.
[2022-02-12] MEDS ORDERED: LORazepam 2 MG/ML INJ IV STA (02:21)
[2022-02-12] MEDS ORDERED: PROCHLORPERAZINE INJ 10 MG/2 ML VIAL IVP STA (02:21)
[2022-02-12] MEDS ORDERED: NALOXONE 0.4 MG/ML 1 ML VIAL IV PRN (03:04)
[2022-02-12] MEDS: SODIUM CHLORIDE 0.9% 1,000 ML IV SCH ×3 (06:13→20:23)
[2022-02-12 06:43] LABS: Appearance,Urine Clear (Clear); Bacteria,Urine Moderate /hpf; Bilirubin,Urine Negative (Negative); Blood,Urine Trace (Negative); Color,Urine Light Yellow; Glucose,Urine (UA) Negative (Negative); Ketones,Urine 1+ (Negative); Leukocyte Esterase,Urine Trace (Negative); Mucus,Urine Rare /hpf; Nitrite,Urine Negative (Negative); Protein,Urine Negative (Negative); RBC,Urine 1 /hpf (0-5); Specific Gravity,Urine 1.013 (1.001-1.035); Squamous Epithelial Cell,Urine 3 /hpf (0-4); Urobilinogen,Urine <2.0 mg/dL (<2.0); WBC,Urine 3 /hpf (0-5)
[2022-02-12] MEDS ORDERED: HYDROcodone/APAP 5-325MG 1 EACH TAB PO PRN ×2 (09:06→09:08)
--- NOTE | 2022-02-12 09:09 | P.GSHP ---
History of Present Illness H&P Date: 02/12/22 Patient underwent a laparoscopic cholecystectomy Wednesday for cholelithiasis. She was doing fairly well yesterday morning, had a bowel movement. Later in the day she began having burning pain across the upper abdomen. She was having some nausea and vomiting and was not sure if this was from the pain medication. She had a couple of episodes of very sharp pain through the night which was treated with morphine in the ER. No severe pain this morning - Review of Systems All systems: negative Past Medical History Additional Past Medical History / Comment(s): ANEMIA, IBS History of Any Multi-Drug Resistant Organisms: None Reported Past Surgical History: No Surgical Hx Reported Past Anesthesia/Blood Transfusion Reactions: Motion Sickness Additional Past Anesthesia/Blood Transfusion Reaction / Comment(s): NO PREVIOUS ANESTH. Past Psychological History: Anxiety Smoking Status: Never smoker Past Alcohol Use History: None Reported Past Drug Use History: Marijuana - Past Family History Mother Family Medical History: No Reported History Father Family Medical History: COPD Additional Family Medical History / Comment(s): ulcers Medications and Allergies Home Medications Medication Instructions Recorded Confirmed Type Ferrous Sulfate [Iron] 325 mg PO DAILY 10/06/21 02/12/22 History Multivitamins, Thera [Multivitamin 1 tab PO DAILY 10/06/21 02/12/22 History (formulary)] traMADol HCl [Ultram] 50 mg PO QID PRN 02/06/22 02/12/22 History HYDROcodone/APAP 5-325MG [[place] 1 - 2 tab PO Q4H PRN #15 tab 02/09/22 02/12/22 Rx 5-325] Ibuprofen [Motrin] 600 mg PO Q8H PRN 02/12/22 02/12/22 History Omeprazole 40 mg PO DAILY 02/12/22 02/12/22 History Ondansetron Odt [Zofran Odt] 4 mg PO Q6H PRN 02/12/22 02/12/22 History Allergies Allergy/AdvReac Type Severity Reaction Status Date / Time Latex, Natural Rubber Allergy Swelling @ Verified 02/12/22 07:41 contact Surgical - Exam Osteopathic Statement: *. No significant issues noted on an osteopathic stru ctural exam other than those noted in the History and Physical/Consult. Vital Signs Pulse Resp BP Pulse Ox 89 16 130/89 98 02/11/22 22:58 02/11/22 22:58 02/11/22 22:58 02/11/22 22:58 - General well developed, well nourished, no distress - Respiratory clear to auscultation - Cardiovascular Rhythm: regular - Abdomen Incisions are intact, clean and dry. Abdomen: soft, bowel sounds - Integumentary no rash (No evidence of any shingles type rash on the right side of the abdomen or back) Results - Labs 02/11/22 23:10 02/11/22 23:10 Abnormal Lab Results - Last 24 Hours (Table) 02/11/22 02/11/22 02/12/22 Range/Units 23:10 23:10 06:12 WBC 13.8 H (3.8-10.6) k/uL Neutrophils # 10.9 H (1.3-7.7) k/uL Glucose 119 H (74-99) mg/dL AST 102 H (14-36) U/L ALT 76 H (4-34) U/L Urine Ketones 1+ H (Negative) Urine Blood Trace H (Negative) Ur Leukocyte Esterase Trace H (Negative) Urine Bacteria Moderate H (None) /hpf Urine Mucus Rare H (None) /hpf Diabetes panel 02/11/22 Range/Units 23:10 Sodium 137 (137-145) mmol/L Potassium 3.9 (3.5-5.1) mmol/L Chloride 99 (98-107) mmol/L Carbon Dioxide 23 (22-30) mmol/L BUN 7 (7-17) mg/dL Creatinine 0.59 (0.52-1.04) mg/dL Glucose 119 H (74-99) mg/dL Calcium 9.6 (8.4-10.2) mg/dL AST 102 H (14-36) U/L ALT 76 H (4-34) U/L Alkaline Phosphatase 71 (38-126) U/L Total Protein 7.2 (6.3-8.2) g/dL Albumin 4.3 (3.5-5.0) g/dL Calcium panel 02/11/22 02/12/22 Range/Units 23:10 01:02 Calcium 9.6 (8.4-10.2) mg/dL Phosphorus 3.8 (2.5-4.5) mg/dL Albumin 4.3 (3.5-5.0) g/dL Pituitary panel 02/11/22 Range/Units 23:10 Sodium 137 (137-145) mmol/L Potassium 3.9 (3.5-5.1) mmol/L Chloride 99 (98-107) mmol/L Carbon Dioxide 23 (22-30) mmol/L BUN 7 (7-17) mg/dL Creatinine 0.59 (0.52-1.04) mg/dL Glucose 119 H (74-99) mg/dL Calcium 9.6 (8.4-10.2) mg/dL Adrenal panel 02/11/22 Range/Units 23:10 Sodium 137 (137-145) mmol/L Potassium 3.9 (3.5-5.1) mmol/L Chloride 99 (98-107) mmol/L Carbon Dioxide 23 (22-30) mmol/L BUN 7 (7-17) mg/dL Creatinine 0.59 (0.52-1.04) mg/dL Glucose 119 H (74-99) mg/dL Calcium 9.6 (8.4-10.2) mg/dL Total Bilirubin 0.4 (0.2-1.3) mg/dL AST 102 H (14-36) U/L ALT 76 H (4-34) U/L Alkaline Phosphatase 71 (38-126) U/L Total Protein 7.2 (6.3-8.2) g/dL Albumin 4.3 (3.5-5.0) g/dL - Imaging CT scan - abdomen: report reviewed, image reviewed Assessment and Plan (1) Abdominal pain Current Visit: Yes Status: Acute Code(s): R10.9 - UNSPECIFIED ABDOMINAL PAIN SNOMED Code(s): 36969872 (2) Nausea & vomiting Current Visit: Yes Status: Acute Code(s): R11.2 - NAUSEA WITH VOMITING, UNSPECIFIED SNOMED Code(s): 51358350 (3) Postoperative pain Current Visit: Yes Status: Acute Code(s): G89.18 - OTHER ACUTE POSTPROCEDURAL PAIN SNOMED Code(s): 359403822 Plan: Patient clinically looks well. No free fluid or air on the CT of the abdomen. Work on pain control. Likely be ready for discharge later today or tomorrow.
[2022-02-12] MEDS ORDERED: NON FORMULARY DRUG (Omeprazole [Omeprazole] 40 MG Capsule.Dr) PO SCH (09:15)
[2022-02-12] MEDS: PANTOPRAZOLE 40 MG/10 ML VIAL IV SCH (10:03)
[2022-02-12] MEDS: ONDANSETRON 4 MG/2 ML VIAL IVP PRN ×2 (10:45→20:22)
[2022-02-12] MEDS: HYDROmorphone 1 MG/ML 1 ML SYRINGE IVP PRN ×4 (10:46→23:44)
[2022-02-12] MEDS: KETOROLAC 15 MG/ML 1 ML VIAL IVP SCH ×3 (11:16→23:43)
[2022-02-13] MEDS: HYDROmorphone 1 MG/ML 1 ML SYRINGE IVP PRN ×2 (02:45→08:15)
[2022-02-13] MEDS: KETOROLAC 15 MG/ML 1 ML VIAL IVP SCH ×2 (05:18→12:10)
[2022-02-13] MEDS: SODIUM CHLORIDE 0.9% 1,000 ML IV SCH ×2 (05:19→09:17)
[2022-02-13] MEDS: ONDANSETRON 4 MG/2 ML VIAL IVP PRN (08:15)
[2022-02-13] MEDS: PANTOPRAZOLE 40 MG/10 ML VIAL IV SCH (08:15)
[2022-02-13 08:35] VITALS: PULSE 103
[2022-02-13 10:28] LABS: Basophils # (A) 0.06 X 10*3/uL (0.00-0.10); Basophils % (A) 0.6 %; Eosinophils # (A) 0.35 X 10*3/uL (0.04-0.35); Eosinophils % (A) 3.3 %; HCT 39.2 % (37.2-46.3); HGB 12.6 g/dL (12.0-15.0); Immature Grans, Automated 0.4 %; Lymphocytes # (A) 2.83 X 10*3/uL (0.90-5.00); MCH 27.8 pg (27.0-32.0); MCHC 32.1 g/dL (32.0-37.0); MCV 86.5 fL (80.0-97.0); Mean Platelet Volume 10.5 fL (9.5-12.2); Monocytes # (A) 0.46 X 10*3/uL (0.20-1.00); Monocytes % (A) 4.4 %; NRBC Per 100 WBC 0 /100 WBCS (0.0-0.0); Neutrophils # (A) 6.73 X 10*3/uL (1.80-7.70); Neutrophils % (A) 64.3 %; Platelet Count 332 X 10*3/uL (140-440); RBC 4.53 X 10*6/uL (4.10-5.20); RDW 12.9 % (11.5-14.5); WBC 10.47 X 10*3/uL (4.50-10.00)
[2022-02-13 10:58] LABS: African American GFR (CKD) 141.8 (60.0-200.0); Albumin 3.6 g/dL (3.8-4.9); Albumin/Globulin Ratio 1.5 (1.60-3.17); Anion Gap 9.7 mmol/L (10.00-18.00); BUN/Creat Ratio 8.67 Ratio (12.00-20.00); Blood Urea Nitrogen 5.2 mg/dL (9.0-27.0); Calcium 8.7 mg/dL (8.7-10.3); Carbon Dioxide 24.3 mmol/L (20.0-27.5); Globulin 2.4 g/dL (1.6-3.3); Magnesium 1.8 mg/dL (1.5-2.4); Non-African American GFR(CKD) 122.3 (60.0-200.0); Phosphorus 3.1 mg/dL (2.4-5.1); Potassium 3.7 mmol/L (3.5-5.5); Total Bilirubin 0.5 mg/dL (0.30-1.20)
--- NOTE | 2022-02-13 12:45 | P.PN ---
Subjective Progress Note Date: 02/13/22 Patient is seen on rounds. She is continuing to have pain but it's controlled with a combination of pain medication. No nausea or vomiting. The patient is hungry. Objective - Vital Signs Vital signs: Vital Signs Temp 98.2 F 02/13/22 07:00 Pulse 103 H 02/13/22 07:00 Resp 18 02/13/22 07:00 BP 119/79 02/13/22 07:00 Pulse Ox 94 L 02/13/22 07:00 FiO2 Intake & Output 02/12/22 02/13/22 02/13/22 18:59 06:59 18:59 Intake Total 0 Balance 0 Intake: Oral 0 Other: Voiding Method Toilet # Voids 2 - Constitutional General appearance: Present: cooperative, no acute distress - Gastrointestinal Gastrointestinal Comment(s): Incisions are intact, clean and dry. No evidence of any rashes or hematomas on the skin. General gastrointestinal: Present: normal bowel sounds, soft - Labs CBC & Chem 7: 02/13/22 07:41 02/13/22 07:41 Labs: Abnormal Lab Results - Last 24 Hours (Table) 02/13/22 02/13/22 Range/Units 07:41 07:41 WBC 10.47 H (4.50-10.00) X 10*3/uL Anion Gap 9.70 L (10.00-18.00) mmol/L BUN 5.2 L (9.0-27.0) mg/dL BUN/Creatinine Ratio 8.67 L (12.00-20.00) Ratio AST 88 H (13-35) U/L ALT 90 H (8-44) U/L Total Protein 6.0 L (6.2-8.2) g/dL Albumin 3.6 L (3.8-4.9) g/dL Albumin/Globulin Ratio 1.50 L (1.60-3.17) g/dL Assessment and Plan (1) Abdominal pain Current Visit: Yes Status: Acute Code(s): R10.9 - UNSPECIFIED ABDOMINAL PAIN SNOMED Code(s): 05087445 (2) Nausea & vomiting Current Visit: Yes Status: Acute Code(s): R11.2 - NAUSEA WITH VOMITING, UNSPECIFIED SNOMED Code(s): 81073342 (3) Postoperative pain Current Visit: Yes Status: Acute Code(s): G89.18 - OTHER ACUTE POSTPROCEDURAL PAIN SNOMED Code(s): 210253997 Plan: Patient's clinically slowly improving. She probably had increased pain due to postop nausea from the anesthetic and pain pills. We'll switch her over to tramadol after discharge with some scheduled Naprosyn. Give her a diet. If she is able to tolerate a diet she can be discharged home today. Questions were encouraged and answered.
[2022-02-13] MEDS ORDERED: ACETAMINOPHEN TAB 325 MG TAB PO STA (13:26)
[2022-02-13 14:11] VITALS: BP 133/80; RESP 16; TEMP 97.5
== END 2022-02-13 16:00 | disposition home or self-care (01) ==
LOC: EC 22:39 → 6NMEDSUR 02-12 03:04
PROVIDERS: ADMIT Surgery; ATTEND Surgery
DX: G89.18 Other acute postprocedural pain (principal); K58.0 Irritable bowel syndrome with diarrhea; D64.9 Anemia, unspecified; J98.11 Atelectasis; N85.4 Malposition of uterus; K42.9 Umbilical hernia without obstruction or gangrene; F41.9 Anxiety disorder, unspecified; Z90.49 Acquired absence of other specified parts of digestive tract; Z82.5 Family history of asthma and other chronic lower respiratory diseases; Z91.040 Latex allergy status; Z32.02 Encounter for pregnancy test, result negative
CPT/HCPCS: 96376 ×3; 96361 ×3; 96360; 96374; 96375; 99285; 36415 ×2; 80053 ×2; 82150; 83605; 83690; 83735 ×2; 84100 ×2; 85025 ×2; 81001; 81025; 74176; G0378 ×2; J2060; J2270; J0780; J2405 ×2; J1170 ×2; J1885 ×2; C9113 ×2; 93005

== ENCOUNTER → 2022-08-25 | Outpatient (CLI) | payer OTHER ==
[2022-08-25 15:45] LABS: Basophils # (A) 0.07 X 10*3/uL (0.00-0.10); Basophils % (A) 0.7 %; Eosinophils # (A) 0.56 X 10*3/uL (0.04-0.35); Eosinophils % (A) 5.8 %; HCT 41.8 % (37.2-46.3); HGB 13.5 g/dL (12.0-15.0); Immature Grans, Automated 0.4 %; Lymphocytes # (A) 3.37 X 10*3/uL (0.90-5.00); Lymphocytes % (A) 35.1 %; MCH 27.6 pg (27.0-32.0); MCHC 32.3 g/dL (32.0-37.0); MCV 85.3 fL (80.0-97.0); Mean Platelet Volume 9.9 fL (9.5-12.2); Monocytes # (A) 0.41 X 10*3/uL (0.20-1.00); Monocytes % (A) 4.3 %; NRBC Per 100 WBC 0 /100 WBCS (0.0-0.0); Neutrophils # (A) 5.16 X 10*3/uL (1.80-7.70); Neutrophils % (A) 53.7 %; Platelet Count 396 X 10*3/uL (140-440); WBC 9.61 X 10*3/uL (4.50-10.00)
[2022-08-25 16:13] LABS: African American GFR (CKD) 131.8 (60.0-200.0); Albumin 4.2 g/dL (3.8-4.9); Albumin/Globulin Ratio 1.48 (1.60-3.17); Anion Gap 6.8 mmol/L (10.00-18.00); BUN/Creat Ratio 12.95 Ratio (12.00-20.00); Blood Urea Nitrogen 9.2 mg/dL (9.0-27.0); Calcium 9.8 mg/dL (8.7-10.3); Carbon Dioxide 25.2 mmol/L (20.0-27.5); Globulin 2.8 g/dL (1.6-3.3); Non-African American GFR(CKD) 113.7 (60.0-200.0); Potassium 4.5 mmol/L (3.5-5.5); Total Bilirubin 0.2 mg/dL (0.30-1.20)
[2022-08-26 17:26] LABS: Hepatitis B Surface AB- Quant 5.4 mIU/mL; Hepatitis B Surface Antibody Nonreactive (Nonreactive)
== END | disposition home or self-care (01) ==
LOC: LABWHC1 10:59
PROVIDERS: ATTEND Family Medicine
DX: Z33.1 Pregnant state, incidental (principal)
CPT/HCPCS: 36415; 80053; 84702; 85025; 86706; 86762; 86780; 86850; 86900; 86901

== ENCOUNTER 2023-04-15 08:40 | Outpatient (CLI) | payer OTHER ==
[2023-04-15 10:45] VITALS: BP 132/82; PULSE 118; RESP 16; TEMP 97.2
--- NOTE | 2023-04-24 11:44 | P.MSEPDOC ---
Presenting Problems - Arrival Data Date of Arrival on Unit: 04/15/23 Time of Arrival on Unit: 08:50 Mode of Transport: Ambulatory - Complaint OB-Reason for Admission/Chief Complaint: Possible Onset of Labor, Decreased Movement Comment: pt states that her contractions have got stronger since midnight and has felt baby move as much since they started. rating contractions 11/23 Medical History - Information : 3 Para: 2 Term: 2 : 0 Abortions: Spontaneous or Elective: 0 Number of Living Children: 2 - Gestational Age Gestational Age by JUAQUIN (wks/days): 38 Weeks and 3 Days Review of Systems - Review of Systems Constitutional: No problems Breast: No problems ENT: No problems Cardiovascular: No problems Respiratory: No problems Gastrointestinal: No problems Genitourinary: No problems Musculoskeletal: No problems Neurological: No problems Skin: No problems Vital Signs - Temperature Temperature: 97.2 F Temperature Source: Temporal Artery Scan - Pulse Pulse Oximetery Pulse Rate: 118 Pulse Assessment Method: Pulse Oximetry - Respirations Respiratory Rate: 16 Oxygen Delivery Method: Room Air O2 Sat by Pulse Oximetry: 95 - Blood Pressure Right Arm Blood Pressure: 132/82 Blood Pressure Mean: 98 Blood Pressure Source: Automatic Cuff Medical Screen Scoring - Cervical Exam Dilation (cm): 3 Effacement (%): 50 Station: -2 Membranes: Intact - Uterine Contractions Frequency From (mins): 2 Frequency To (mins): 2 Duration From (seconds): 50 Duration To (seconds): 60 Intensity: Moderate Resting: Soft to palpation - Assessment - Baby A Baseline FHR: 150 Heart Rate - NICHD Category: Category I (Normal) NST: Reactive Physician Notification - Physician Notified Physician Notified Date: 04/15/23 Physician Notified Time: 10:08 Physician: Cliff Lim Order Received: Yes - Notification Comment Comment: give pt option to go home and come back or wait one more hour and recheck cervix Maternal Triage Index - Maternal Triage Index Presenting for scheduled procedure w/no complaint: No - Stat/Priority 1 Stat Priority 1: No - Urgent/Priority 2 Urgent Priority 2: No - Prompt/Priority 3 Prompt Priority 3: Yes Criteria Met for Priority 3: pt complaint of contractions with decreased FM since midnight last night. reactive NST, contractions every 2 mins with no cervical international exchange coordinator the course of 1 hour. when given the option to stay for another hour or come back when contractions are stronger the pt would like to go home and come back when needed. Disposition - Disposition OB Disposition: Discharge to home Discharge Date: 04/15/23 Discharge Time: 10:17 I agree with the RN Medical Screening Exam: Yes Physician's MSE Comment: I have neither seen nor examined the patient. Case reviewed; plan agreed upon as documented in EMR&OBIX.: Yes Diagnosis: RELATED CONDITIONS, UNSPECIFIED, THIRD TRIMESTER
== END 2023-04-15 10:17 | disposition home or self-care (01) ==
LOC: FBPOP 08:40
PROVIDERS: ATTEND Obstetrics & Gynecology
DX: O47.1 False labor at or after 37 completed weeks of gestation (principal); Z3A.38 38 weeks gestation of pregnancy
CPT/HCPCS: 59025; 84112; G0463; 99213

== ENCOUNTER 2023-04-16 13:51 | Outpatient (CLI) | payer OTHER ==
[2023-04-16 14:58] VITALS: BP 127/87; PULSE 149; RESP 16; TEMP 98.5
--- NOTE | 2023-04-19 08:27 | P.MSEPDOC ---
Presenting Problems - Arrival Data Date of Arrival on Unit: 04/16/23 Time of Arrival on Unit: 13:51 Mode of Transport: Ambulatory - Complaint OB-Reason for Admission/Chief Complaint: Possible Onset of Labor, Decreased Movement, Other Comment: contractions began early 04/15/23. chest pain began in the am 04/16/23 Medical History - Information : 3 Para: 2 Term: 2 : 0 Abortions: Spontaneous or Elective: 0 Number of Living Children: 2 - Gestational Age Gestational Age by JUAQUIN (wks/days): 38 Weeks and 4 Days Review of Systems - Review of Systems Constitutional: No problems Breast: No problems ENT: No problems Cardiovascular: Chest pain Respiratory: No problems Gastrointestinal: No problems Genitourinary: No problems Musculoskeletal: No problems Neurological: No problems Skin: No problems Vital Signs - Temperature Temperature: 98.5 F Temperature Source: Oral - Pulse Pulse Oximetery Pulse Rate: 149 Pulse Assessment Method: Pulse Oximetry - Respirations Respiratory Rate: 16 O2 Sat by Pulse Oximetry: 95 - Blood Pressure Right Arm Blood Pressure: 127/87 Blood Pressure Mean: 100 Blood Pressure Source: Automatic Cuff Medical Screen Scoring - Cervical Exam Dilation (cm): 3.0 Effacement (%): 40 Station: -3 Membranes: Intact - Uterine Contractions Frequency From (mins): 2 Frequency To (mins): 5 Duration From (seconds): 40 Duration To (seconds): 50 Intensity: Moderate Resting: Soft to palpation - Assessment - Baby A Baseline FHR: 145 Heart Rate - NICHD Category: Category I (Normal) NST: Reactive Physician Notification - Physician Notified Physician Notified Date: 04/16/23 Physician Notified Time: 14:16 Physician: Jia Martinez Order Received: Yes Maternal Triage Index - Maternal Triage Index Presenting for scheduled procedure w/no complaint: No - Stat/Priority 1 Stat Priority 1: No - Urgent/Priority 2 Urgent Priority 2: Yes Provider Notified: Michelle Provider Notified Time: 14:16 Criteria Met for Priority 2: maternal heart rate 126-149 bpm, pt complains of chest pain/tighting that radiates to her back Disposition - Disposition OB Disposition: Transfer to other dept./facility Transferred to:: ER Discharge Date: 04/16/23 Discharge Time: 14:26 I agree with the RN Medical Screening Exam: Yes Physician's MSE Comment: I have neither seen nor examined the patient Case reviewed; plan agreed upon as documented in EMR&OBIX.: Yes Diagnosis: MATERNAL CARE FOR PROBLEM, UNSP, THIRD * DO NOT USE *
== END 2023-04-16 14:26 | disposition home or self-care (01) ==
LOC: FBPOP 13:51
PROVIDERS: ATTEND Obstetrics & Gynecology
DX: O99.413 Diseases of the circulatory system complicating pregnancy, third trimester (principal); Z3A.38 38 weeks gestation of pregnancy
CPT/HCPCS: 59025; G0463; 99213

== ENCOUNTER 2023-04-16 14:33 | Emergency (ER) | payer OTHER ==
[2023-04-16 14:58] VITALS: TEMP 98.3
[2023-04-16 15:19] LABS: Basophils % (A) 0 %; Eosinophils # (A) 0.2 k/uL (0-0.7); Eosinophils % (A) 2 %; HCT 34.7 % (34.0-46.0); HGB 11.6 gm/dL (11.4-16.0); Hypochromasia Slight; Lymphocytes # (A) 2.4 k/uL (1.0-4.8); Lymphocytes % (A) 25 %; MCH 25.8 pg (25.0-35.0); MCHC 33.6 g/dL (31.0-37.0); MCV 76.9 fL (80.0-100.0); Mean Platelet Volume 9.3; Microcytosis Slight; Monocytes # (A) 0.3 k/uL (0-1.0); Monocytes % (A) 3 %; Neutrophils # (A) 6.4 k/uL (1.3-7.7); Neutrophils % (A) 67 %; Platelet Count 252 k/uL (150-450); RDW 15.5 % (11.5-15.5); WBC 9.6 k/uL (3.8-10.6)
[2023-04-16 15:29] LABS: INR 0.8 (<1.2); Partial Thromboplastin Time 23.3 sec (22.0-30.0); Prothrombin Time 9.5 sec (10.0-12.5)
[2023-04-16 15:38] LABS: ALT 13 U/L (4-34); AST 21 U/L (14-36); African American GFR (CKD) >90 (>60 ml/min/1.73 sqM); Albumin 3.4 g/dL (3.5-5.0); Alkaline Phosphatase 128 U/L (38-126); Anion Gap 7 mmol/L; Blood Urea Nitrogen 5 mg/dL (7-17); Calcium 9.2 mg/dL (8.4-10.2); Carbon Dioxide 24 mmol/L (22-30); Chloride 104 mmol/L (98-107); Glucose 111 mg/dL (74-99); Magnesium 1.7 mg/dL (1.6-2.3); Non-African American GFR(CKD) >90 (>60 ml/min/1.73 sqM); Potassium 3.6 mmol/L (3.5-5.1); Sodium 135 mmol/L (137-145); Total Bilirubin 0.4 mg/dL (0.2-1.3); Total Protein 6.5 g/dL (6.3-8.2)
--- NOTE | 2023-04-16 20:03 | ED ---
Chest Pain HPI - General Chief Complaint: Chest Pain Stated Complaint: Chest pains Time Seen by Provider: 04/16/23 19:50 Source: patient Mode of arrival: wheelchair Limitations: no limitations - History of Present Illness MD Complaint: chest pain Onset/Timin -: hour(s) Onset: during rest Pain Location: substernal Pain Radiation: none Severity: mild Quality: dull Consistency: constant Improves With: nothing Worsens With: nothing Treatments Prior to Arrival: none - Related Data Home Medications Medication Instructions Recorded Confirmed Omeprazole 40 mg PO DAILY 02/12/22 04/20/23 Pnv,Calcium 72/Iron/Folic Acid 1 tab PO DAILY 04/15/23 04/20/23 [Westab Plus Tablet] Allergies Allergy/AdvReac Type Severity Reaction Status Date / Time No Known Allergies Allergy Verified 04/20/23 06:36 Review of Systems ROS Statement: Those systems with pertinent positive or pertinent negative responses have been documented in the HPI. ROS Other: All systems not noted in ROS Statement are negative. Constitutional: Denies: fever, chills Respiratory: Denies: cough, dyspnea, wheezes Cardiovascular: Reports: chest pain. Denies: palpitations, orthopnea, edema, syncope Gastrointestinal: Denies: abdominal pain, vomiting, diarrhea Genitourinary: Denies: dysuria, hematuria Musculoskeletal: Denies: back pain Skin: Denies: rash Neurological: Denies: headache, weakness EKG Findings - EKG Results: EKG: interpreted by ERMD, sinus rhythm, normal axis, normal QRS, normal ST/T EKG shows: tachycardia (Rate 114 bpm) Past Medical History Additional Past Medical History / Comment(s): ANEMIA, IBS History of Any Multi-Drug Resistant Organisms: None Reported Past Surgical History: No Surgical Hx Reported Past Anesthesia/Blood Transfusion Reactions: Motion Sickness Additional Past Anesthesia/Blood Transfusion Reaction / Comment(s): NO PREVIOUS ANESTH. Past Psychological History: Anxiety Smoking Status: Never smoker - Past Family History Mother Family Medical History: No Reported History Father Family Medical History: COPD Additional Family Medical History / Comment(s): ulcers General Exam Limitations: no limitations General appearance: alert, in no apparent distress Head exam: Present: atraumatic, normocephalic Eye exam: Present: normal appearance. Absent: scleral icterus, conjunctival injection Neck exam: Present: normal inspection Respiratory exam: Present: normal lung sounds bilaterally. Absent: respiratory distress, wheezes, rales, rhonchi, stridor, chest wall tenderness Cardiovascular Exam: Present: regular rate, normal rhythm, normal heart sounds. Absent: systolic murmur, diastolic murmur, rubs, gallop GI/Abdominal exam: Present: soft, other (Gravid uterus well above the umbilicus. Movements palpable). Absent: distended, tenderness, guarding, rebound, rigid, mass Extremities exam: Present: normal inspection, normal capillary refill. Absent: pedal edema, calf tenderness Back exam: Present: normal inspection. Absent: CVA tenderness (R), CVA tenderness (L) Neurological exam: Present: alert Skin exam: Present: warm, dry, intact, normal color. Absent: rash Course Vital Signs 04/16/23 04/16/23 14:43 21:02 Temperature 98.3 F Pulse Rate 105 H 100 Respiratory 20 16 Rate Blood Pressure 128/79 123/87 O2 Sat by Pulse 96 95 Oximetry Chest Pain MDM - MDM Was pt. sent in by a medical professional or institution ( PA, LOCAL [place] TRUCK DRIVER, urgent care, hospital, or longterm...) When possible be specific @ -[No] Did you speak to anyone other than the patient for history (EMS, parent, family, police, friend...)? What history was obtained from this source @ -[No] Did you review nursing and triage notes (agree or disagree)? Why? @ -[I reviewed and agree with nursing and triage notes] Were old charts reviewed (outside hosp., previous admission, EMS record, old EKG, old radiological studies, urgent care reports/EKG's, longterm records)? Report findings @ -[No old charts were reviewed] Differential Diagnosis (chest pain, altered mental status, abdominal pain women, abdominal pain men, vaginal bleeding, weakness, fever, dyspnea, syncope, headache, dizziness, GI bleed, back pain, seizure, CVA, palpatations, mental health, musculoskeletal)? @ -[Differential Chest Pain: Stable Angina, Unstable Angina, STEMI, NSTEMI Aortic Dissection, Pneumothorax, Musculoskeletal, Esophageal Spasm GERD, Cholecystitis, Pancreatitis, Zoster, this is not meant to be an all-inclusive list. EKG interpreted by me (3pts min.). @ -[I interpreted As above] X-rays interpreted by me (1pt min.). @ -[None done] CT interpreted by me (1pt min.). @ -[None done] U/S interpreted by me (1pt. min.). @ -[None done] What testing was considered but not performed or refused? (CT, X-rays, U/S, labs)? Why? @ -[None] What meds were considered but not given or refused? Why? @ -[None] Did you discuss the management of the patient with other professionals (pro fessionals i.e. , PA, LOCAL [place] TR[employer] DRIVER, lab, RT, psych nurse, rn social work, military lawyer, teacher, chief accounting officer, casework supervisor)? Give summary @ -[No] Was smoking cessation discussed for >3mins.? @ -[No] Was critical care preformed (if so, how long)? @ -[No] Were there social determinants of health that impacted care today? How? (Homelessness, low income, unemployed, alcoholism, drug addiction, transportation, low edu. Level, literacy, decrease access to med. care, assisted, rehab)? @ -[No] Was there de-escalation of care discussed even if they declined (Discuss DNR or withdrawal of care, Hospice)? DNR status @ -[No] What co-morbidities impacted this encounter? (DM, HTN, Smoking, COPD, CAD, Cancer, CVA, ARF, Chemo, Hep., AIDS, mental health diagnosis, sleep apnea, morbid obesity)? @ -[None] Was patient admitted / discharged? Hospital course, mention meds given and route, prescriptions, significant lab abnormalities, going to OR and other pertinent info. @ -[Patient is 32-year-old woman presented to have evaluation of chest pain. The patient's history and physical exam are not suggestive of cardiac etiology or pulmonary embolism. At this point patient stable to have further evaluation is outpatient. We discussed appropriate further care and follow-up as well as return parameters. Undiagnosed new problem with uncertain prognosis? @ -[No] Drug Therapy requiring intensive monitoring for toxicity (Heparin, Nitro, Insulin, Cardizem)? @ -[No] Were any procedures done? @ -[No] Diagnosis/symptom? @ -[Acute chest pain Acute, or Chronic, or Acute on Chronic? @ -[Acute Uncomplicated (without systemic symptoms) or Complicated (systemic symptoms)? @ -[Uncomplicated Side effects of treatment? @ -[No] Exacerbation, Progression, or Severe Exacerbation? @ -[No] Poses a threat to life or bodily function? How? (Chest pain, [place], [place], pneumonia, PE, COPD, DKA, ARF, appy, cholecystitis, CVA, Diverticulitis, Homicidal, Suicidal, threat to staff... and all critical care pts) @ -[No] Disposition Clinical Impression: Chest pain Disposition: HOME SELF-CARE Condition: Good Instructions (If sedation given, give patient instructions): Chest Pain (ED) Is patient prescribed a controlled substance at d/c from ED?: No Referrals: None,Stated [REFERRING] - 1-2 days
[2023-04-16 21:24] VITALS: BP 123/87; PULSE 100; RESP 16
== END 2023-04-16 21:03 | disposition home or self-care (01) ==
LOC: EC 14:33
DX: R00.0 Tachycardia, unspecified (principal); Z86.59 Personal history of other mental and behavioral disorders
CPT/HCPCS: 36415; 80053; 83735; 84484; 85025; 85610; 85730; 93005; 99285

== ENCOUNTER 2023-04-20 06:26 | Inpatient (IN) | payer OTHER ==
[2023-04-20] MEDS ORDERED: LIDOCAINE 0.5% (PF) 5 MG/ML (50 ML SDV) SQ PRN (06:37)
[2023-04-20] MEDS ORDERED: miSOPROStoL 200 MCG TAB PO PRN (06:37)
[2023-04-20] MEDS ORDERED: TERBUTALINE 1 MG/ML VIAL SQ PRN (06:37)
[2023-04-20] MEDS ORDERED: OXYTOCIN 10 UNIT/ML 1 ML VIAL IM PRN (06:37)
[2023-04-20] MEDS ORDERED: CARBOPROST TROMETHAMINE 250 MCG/ML 1 ML AMP IM PRN (06:37)
[2023-04-20] MEDS ORDERED: TRANEXAMIC 1,000 MG/100ML-NACL 1,000 MG in EMPTY BAG 1 BAG IV PRN (06:37)
[2023-04-20] MEDS ORDERED: METHYLERGONOVINE 0.2 MG/ML 1 ML AMP IM PRN (06:37)
[2023-04-20] MEDS ORDERED: OXYTOCIN 30 UNITS/500 ML NS 30 UNIT in SALINE 1 500ML.BAG IV SCH ×2 (06:45→15:30)
[2023-04-20 07:12] LABS: Basophils # (A) 0.1 k/uL (0-0.2); Basophils % (A) 1 %; Eosinophils # (A) 0.3 k/uL (0-0.7); Eosinophils % (A) 3 %; HCT 34.9 % (34.0-46.0); HGB 11.6 gm/dL (11.4-16.0); Hypochromasia Slight; Lymphocytes # (A) 2.8 k/uL (1.0-4.8); Lymphocytes % (A) 29 %; MCH 25.7 pg (25.0-35.0); MCHC 33.3 g/dL (31.0-37.0); MCV 77.3 fL (80.0-100.0); Mean Platelet Volume 9.7; Microcytosis Slight; Monocytes # (A) 0.4 k/uL (0-1.0); Monocytes % (A) 4 %; Neutrophils # (A) 5.9 k/uL (1.3-7.7); Neutrophils % (A) 61 %; Platelet Count 260 k/uL (150-450); RBC 4.52 m/uL (3.80-5.40); RDW 15.9 % (11.5-15.5); WBC 9.6 k/uL (3.8-10.6)
[2023-04-20] MEDS: LACTATED RINGERS 1,000 ML IV SCH ×2 (07:16→15:45)
[2023-04-20] MEDS ORDERED: NALBUPHINE 10 MG/ML (10 ML MDV) IV PRN (09:27)
[2023-04-20] MEDS ORDERED: ONDANSETRON 4 MG/2 ML VIAL IVP PRN (09:28)
--- NOTE | 2023-04-20 09:31 | P.HPOB ---
History of Present Illness H&P Date: 04/20/23 Chief Complaint: 39-0/7 weeks, elective induction of labor The patient is a 32-year-old 3 para 2 scissors or 2 admitted at 39-0/7 weeks as established by a 6 week ultrasound. She is admitted for elective induction of labor with all signs reassuring, category 1 heart rate tracing. Her has been uncomplicated and group B strep status is negative. Obstetrical history: 3 para 2001 with 2 term vaginal deliveries without complications. Current statistics are listed in history of present illness. EDC of 04/26/2023 was established by 6 week ultrasound. Laboratory workup demonstrates a blood type of A+ with a negative antibody screen. Rubella status is immune. The remainder of the laboratory workup was within normal limits. Early Glucola and second trimester Glucola were within normal limits and group B strep status is negative. Gynecologic history: Unremarkable with no history of any infections to include STDs. Review of Systems Review of systems is confined to history of present illness. Past Medical History Additional Past Medical History / Comment(s): ANEMIA prior to , IBS History of Any Multi-Drug Resistant Organisms: None Reported Past Surgical History: Cholecystectomy Past Anesthesia/Blood Transfusion Reactions: Motion Sickness Additional Past Anesthesia/Blood Transfusion Reaction / Comment(s): NO PREVIOUS ANESTH. Past Psychological History: No Psychological Hx Reported Smoking Status: Never smoker Past Alcohol Use History: None Reported Past Drug Use History: None Reported - Past Family History Mother Family Medical History: No Reported History Father Family Medical History: COPD Additional Family Medical History / Comment(s): ulcers Medications and Allergies Home Medications Medication Instructions Recorded Confirmed Type Omeprazole 40 mg PO DAILY 02/12/22 04/20/23 History Pnv,Calcium 72/Iron/Folic Acid 1 tab PO DAILY 04/15/23 04/20/23 History [Westab Plus Tablet] Allergies Allergy/AdvReac Type Severity Reaction Status Date / Time No Known Allergies Allergy Verified 04/20/23 06:36 Exam Vital Signs Temp Pulse Resp BP Pulse Ox 04/20/23 06:35 96.5 F L 131 H 18 156/71 97 Intake and Output 04/19/23 04/20/23 04/20/23 22:59 06:59 14:59 Other: Weight 89.811 kg In general, this is a well-developed, well-nourished white female in no acute distress. Her heart has a regular rhythm and rate without murmur. Her lungs clear to auscultation bilaterally in all fernandez. Her abdomen is gravid, nondistended, has normal active bowel sounds, soft, nontender, and without any palpable masses aside from the uterine fundus. Her extremities without any cyanosis, clubbing, or edema and are nontender to palpation bilaterally. Digital cervical examination on straights her cervix to be 3 cm dilated, approximately 50% effaced, with the vertex in presentation at -2 station. Artificial rupture of membranes is carried out demonstrating clear fluid. Results Result Diagrams: 04/20/23 07:02 Abnormal Lab Results - Last 24 Hours (Table) 04/20/23 Range/Units 07:02 MCV 77.3 L (80.0-100.0) fL RDW 15.9 H (11.5-15.5) % Assessment and Plan (1) Term Current Visit: Yes Status: Acute Code(s): Z34.90 - ENCNTR FOR SUPRVSN OF NORMAL , UNSP, UNSP TRIMESTER SNOMED Code(s): 94331699 Plan: The patient has been admitted for elective induction. Pitocin augmentation has been started and she is undergone artificial rupture of membranes. She will have close maternal and surveillance and expectant management will be practiced. She is a good candidate for IV or epidural analgesia, whichever she may choose. At this point she is opting to attempt delivery without intervention for pain.
[2023-04-20] MEDS ORDERED: diphenhydrAMINE 25 MG CAP PO PRN (15:28)
[2023-04-20] MEDS ORDERED: SIMETHICONE 80 MG CHEWABLE PO PRN (15:28)
[2023-04-20] MEDS ORDERED: HYDROcodone/APAP 7.5-325MG 1 EACH TAB PO PRN (15:28)
[2023-04-20] MEDS ORDERED: diphenhydrAMINE 50 MG/ML 1 ML VIAL IVP PRN ×2 (15:28)
[2023-04-20] MEDS ORDERED: ZOLPIDEM 5 MG TAB PO PRN (15:28)
[2023-04-20] MEDS ORDERED: HYDROcodone/APAP 5-325MG 1 EACH TAB PO PRN (15:28)
[2023-04-20] MEDS ORDERED: diphenhydrAMINE 50 MG CAP PO PRN (15:28)
[2023-04-20] MEDS ORDERED: HYDROCORTISONE 2.5% RECTAL CREAM 30 GM TUBE RECTAL PRN (15:28)
[2023-04-20] MEDS ORDERED: BENZOCAINE/MENTHOL SPRAY 1 GM/SPRAY AEROSOL TOPICAL PRN (15:28)
[2023-04-20] MEDS ORDERED: LANOLIN CREAM 5 GM TUBE TOPICAL PRN (15:28)
--- NOTE | 2023-04-20 15:31 | P.PROBDLV ---
Vaginal Delivery Note - . Vaginal Delivery Note: The patient is a 32-year-old 3 para 2 scissors or 2 admitted at 39-0/7 weeks by good dating parameters. She is admitted for elective induction of labor with all signs reassuring, category 1 heart rate tracing. Her has been uncomplicated and group B strep status is negative. On labor and delivery, she had Pitocin started followed by artificial rupture of membranes for clear fluid. She made progress throughout the day and a steady fashion through both the latent and active phase of labor and ultimately reached complete and +3 station at which time I arrived. She pushed over the course of the next contraction to a normal spontaneous vaginal delivery of a viable 10 lbs. 2 oz. baby girl with Apgars of 9 at 1 minute and 9 at 5 minutes delivered in the direct occiput anterior position. The placenta was delivered spontaneously, intact, and grossly normal though it was very large with a grossly normal, centrally inserted three-vessel cord. There were no significant lacerations of the perineum, vagina, or cervix. A first-degree laceration in the midline of the perineum was left without a stitch as it would heal for effectively without. Estimated blood loss for the case is approximately 350 mL. There were no complications. All sponge, instrument, needle counts were correct. Both mother and infant are resting comfortably in recovery.
[2023-04-20] MEDS: IBUPROFEN 600 MG TAB PO PRN ×2 (16:20→22:03)
[2023-04-20] MEDS: ACETAMINOPHEN TAB 325 MG TAB PO PRN (18:58)
[2023-04-20] MEDS: SENNOSIDES-DOCUSATE SODIUM 1 EACH TAB PO SCH (18:58)
[2023-04-21] MEDS: IBUPROFEN 600 MG TAB PO PRN ×2 (05:50→11:06)
[2023-04-21] MEDS: SENNOSIDES-DOCUSATE SODIUM 1 EACH TAB PO SCH (08:41)
--- NOTE | 2023-04-21 08:49 | P.DS ---
Providers Date of admission: 04/20/23 06:26 Expected date of discharge: 04/21/23 Attending physician: Cliff Lim Primary care physician: Stated None - Discharge Diagnosis(es) (1) Term Current Visit: Yes Status: Acute (2) Normal spontaneous vaginal delivery Current Visit: Yes Status: Acute Hospital Course: The patient is a 32-year-old 3 para 2001 admitted at 39-0/7 weeks by good dating parameters. She is admitted for elective induction with all signs reassuring. Her was uncomplicated and group B strep status is negative. On labor and delivery, she had Pitocin started and underwent artificial rupture of membranes. She made steady progress through the day and ultimately progressed to complete where after she pushed quickly to a normal spontaneous vaginal delivery of a viable 10 lbs. 2 oz. baby girl with Apgars of 9 at 1 minute and 9 at 5 minutes. Her course was unremarkable with vital signs being stable and her temperature was afebrile throughout. She was deemed stable for discharge on day #1 and was discharged home to follow-up in the office in 6 weeks' time routinely. Discharge instructions included calling for any significantly increased bleeding or foul-smelling lochia, significantly increased fever or abdominal pain, perineal complaints, breast complaints, or anything also concerned her. She is additionally instructed to have nothing in the vagina for at least 6 weeks time to include intercourse. She understood her instructions and agrees to follow up as noted above. Discharge medications included [id number] analgesic pain medications. Maternal blood type is A+ and rubella status is immune. Procedures: #1. Pitocin induction #2. Artificial rupture of membranes #3. Normal spontaneous vaginal delivery Patient Condition at Discharge: Stable Plan - Discharge Summary New Discharge Prescriptions: No Action Pnv,Calcium 72/Iron/Folic Acid [Westab Plus Tablet] 1 tab PO DAILY Omeprazole 40 mg PO DAILY Discharge Medication List Omeprazole 40 mg PO DAILY 02/12/22 [History] Pnv,Calcium 72/Iron/Folic Acid [Westab Plus Tablet] 1 tab PO DAILY 04/15/23 [History] Follow up Appointment(s)/Referral(s): Cliff Lim MD [STAFF PHYSICIAN] - 6 Weeks Discharge Disposition: HOME SELF-CARE
[2023-04-21] MEDS: ACETAMINOPHEN TAB 325 MG TAB PO PRN ×2 (08:55→15:47)
[2023-04-21 09:32] LABS: Basophils # (A) 0.1 k/uL (0-0.2); Basophils % (A) 0 %; Eosinophils # (A) 0.1 k/uL (0-0.7); Eosinophils % (A) 1 %; HCT 30.9 % (34.0-46.0); HGB 10.1 gm/dL (11.4-16.0); Hypochromasia Slight; Lymphocytes # (A) 2.5 k/uL (1.0-4.8); Lymphocytes % (A) 19 %; MCH 25.7 pg (25.0-35.0); MCHC 32.8 g/dL (31.0-37.0); MCV 78.4 fL (80.0-100.0); Mean Platelet Volume 9.9; Monocytes # (A) 0.4 k/uL (0-1.0); Monocytes % (A) 3 %; Neutrophils # (A) 9.9 k/uL (1.3-7.7); Neutrophils % (A) 75 %; Platelet Count 291 k/uL (150-450); RBC 3.94 m/uL (3.80-5.40); RDW 15.9 % (11.5-15.5); WBC 13.2 k/uL (3.8-10.6)
[2023-04-21 09:54] VITALS: RESP 17
[2023-04-21 18:27] VITALS: BP 118/75; PULSE 124; TEMP 98.6
== END 2023-04-21 17:55 | disposition home or self-care (01) | DRG 560 ==
LOC: 4FBP 06:26
PROVIDERS: ADMIT Obstetrics & Gynecology; ATTEND Obstetrics & Gynecology
PROC: 3E033VJ Introduction of Other Hormone into Peripheral Vein, Percutaneous Approach (ICD-10-PCS; principal; 2023-04-20)
PROC: 10E0XZZ Delivery of Products of Conception, External Approach (ICD-10-PCS; principal; 2023-04-20)
PROC: 10907ZC Drainage of Amniotic Fluid, Therapeutic from Products of Conception, Via Natural or Artificial Opening (ICD-10-PCS; principal; 2023-04-20)
DX: O70.0 First degree perineal laceration during delivery (principal); Z37.0 Single live birth; Z3A.39 39 weeks gestation of pregnancy
CPT/HCPCS: 85025; 86850; 86900; 86901

== ENCOUNTER → 2023-07-15 | Outpatient (CLI) | payer OTHER ==
[2023-07-15 18:17] LABS: Basophils # (A) 0.03 X 10*3/uL (0.00-0.10); Basophils % (A) 0.6 %; Eosinophils # (A) 0.32 X 10*3/uL (0.04-0.35); Eosinophils % (A) 6.3 %; HCT 42.5 % (37.2-46.3); HGB 13.1 g/dL (12.0-15.0); Lymphocytes # (A) 2.37 X 10*3/uL (0.90-5.00); Lymphocytes % (A) 46.7 %; MCH 24.3 pg (27.0-32.0); MCHC 30.8 g/dL (32.0-37.0); Mean Platelet Volume 10.3 FL (9.5-12.2); Monocytes # (A) 0.43 X 10*3/uL (0.20-1.00); Monocytes % (A) 8.5 %; NRBC Per 100 WBC 0 X 10*3/uL (0.00-0.01); Neutrophils # (A) 1.91 X 10*3/uL (1.80-7.70); Neutrophils % (A) 37.5 %; Platelet Count 359 X 10*3/uL (140-440); RBC 5.38 X 10*6/uL (4.10-5.20); WBC 5.08 X 10*3/uL (4.50-10.00)
[2023-07-15 18:57] LABS: ALT 118 U/L (8-44); AST 38 U/L (13-35); Albumin 4.2 g/dL (3.8-4.9); Alkaline Phosphatase 108 U/L (41-126); Blood Urea Nitrogen 10.4 mg/dL (9.0-27.0); Calcium 9.5 mg/dL (8.7-10.3); Carbon Dioxide 26.7 mmol/L (21.6-31.8); Chloride 105 mmol/L (96-109); Glucose 90 mg/dL (70-110); Lipase 31 U/L (14-63); Potassium 3.7 mmol/L (3.5-5.5); Sodium 139 mmol/L (135-145); Total Bilirubin <0.2 mg/dL (0.3-1.2); Total Protein 7.2 g/dL (6.2-8.2)
== END | disposition home or self-care (01) ==
LOC: LABWHC1 14:26
PROVIDERS: ATTEND Family Medicine
DX: R19.7 Diarrhea, unspecified (principal); R10.10 Upper abdominal pain, unspecified
CPT/HCPCS: 36415; 80053; 83690; 85025; 86140

== ENCOUNTER → 2023-07-15 | Outpatient (CLI) | payer OTHER ==
--- NOTE | 2023-07-15 21:39 | US ---
EXAMINATION TYPE: US abdomen complete DATE OF EXAM: 07/15/2023 COMPARISON: 12/25/2021 CLINICAL INDICATION: Female, 32 years old with history of RUQ PAIN; VOMITING; DIARRHEA; Epigastric pa in, nausea, cholecystectomy TECHNIQUE: Multiple sonographic images of the abdomen are obtained. FINDINGS: EXAM MEASUREMENTS: Liver Length: 16.9 cm Gallbladder: Surgically absent CBD: 0.5 cm Spleen: 12.7 cm Right Kidney: 11.0 x 3.9 x 4.2 cm Left Kidney: 12.7 x 4.2 x 4.6 cm Pancreas: wnl Liver: wnl Gallbladder: Surgically absent Evidence for sonographic Hollis's sign: no CBD: wnl Spleen: wnl Right Kidney: no evidence of hydronephrosis Left Kidney: no evidence of hydronephrosis Upper IVC: wnl Abd Aorta: wnl IMPRESSION: Status post cholecystectomy. Otherwise, unremarkable sonographic examination of the abdomen.
== END | disposition home or self-care (01) ==
LOC: RADUSWWP 13:47
PROVIDERS: ATTEND Family Medicine
DX: R10.10 Upper abdominal pain, unspecified (principal); R11.0 Nausea; R19.7 Diarrhea, unspecified; R10.13 Epigastric pain; R11.2 Nausea with vomiting, unspecified; Z90.49 Acquired absence of other specified parts of digestive tract
CPT/HCPCS: 76700

== ENCOUNTER 2024-02-10 15:41 | Outpatient (CLI) | payer OTHER ==
[2024-02-10 16:15] LABS: Amorphous Sediment,Urine Occasional /hpf; Appearance,Urine Cloudy (Clear); Bacteria,Urine Occasional /hpf; Bilirubin,Urine Negative (Negative); Blood,Urine Negative (Negative); Color,Urine Colorless; Glucose,Urine (UA) Negative (Negative); Ketones,Urine Negative (Negative); Leukocyte Esterase,Urine Negative (Negative); Mucus,Urine Rare /hpf; Nitrite,Urine Negative (Negative); PH, Urine 7.5 (5.0-8.0); Protein,Urine Negative (Negative); RBC,Urine 1 /hpf (0-5); Specific Gravity,Urine 1.006 (1.001-1.035); Squamous Epithelial Cell,Urine 2 /hpf (0-4); Urobilinogen,Urine <2.0 mg/dL (<2.0); WBC,Urine 1 /hpf (0-5)
[2024-02-10 17:06] VITALS: BP 122/79; PULSE 104; RESP 16; TEMP 96.4
--- NOTE | 2024-03-12 02:22 | P.MSEPDOC ---
Presenting Problems - Arrival Data Date of Arrival on Unit: 02/10/24 Time of Arrival on Unit: 16:58 Mode of Transport: Ambulatory - Complaint OB-Reason for Admission/Chief Complaint: Pain Medical History - Information : 4 Para: 3 Term: 3 : 0 Abortions: Spontaneous or Elective: 0 Number of Living Children: 3 - Gestational Age Gestational Age by JUAQUIN (wks/days): 24 Weeks and 5 Days Review of Systems - Review of Systems Constitutional: No problems Breast: No problems ENT: No problems Cardiovascular: No problems Respiratory: No problems Gastrointestinal: No problems Genitourinary: No problems Musculoskeletal: No problems Neurological: No problems Skin: No problems Vital Signs - Temperature Temperature: 96.4 F Temperature Source: Temporal Artery Scan - Pulse Right Brachial Pulse Rate: 104 Pulse Assessment Method: Automatic Cuff - Respirations Respiratory Rate: 16 Oxygen Delivery Method: Room Air - Blood Pressure Right Arm Blood Pressure: 122/79 Blood Pressure Mean: 93 Blood Pressure Source: Automatic Cuff Medical Screen Scoring - Assessment - Baby A Baseline FHR: 155 Heart Rate - NICHD Category: Category I (Normal) NST: Reactive Physician Notification - Physician Notified Physician Notified Date: 02/10/24 Physician Notified Time: 16:50 Physician: Nydia Estevez Order Received: Yes - Notification Comment Comment: d/c home Maternal Triage Index - Maternal Triage Index Presenting for scheduled procedure w/no complaint: No - Stat/Priority 1 Stat Priority 1: No - Urgent/Priority 2 Urgent Priority 2: No - Prompt/Priority 3 Prompt Priority 3: No - Non-Urgent/Priority 4 Non-Urgent Priority 4: Yes Criteria Met for Priority 4: UTI Disposition - Disposition OB Disposition: Discharge to home Discharge Date: 02/10/24 Discharge Time: 17:00 I agree with the RN Medical Screening Exam: Yes Physician's MSE Comment: I have neither seen nor examined the patient. Case reviewed; plan agreed upon as documented in EMR&OBIX.: Yes Diagnosis: RELATED CONDITIONS, UNSPECIFIED, SECOND TRIMESTER
== END 2024-02-10 17:08 | disposition home or self-care (01) ==
LOC: FBPOP 15:41
PROVIDERS: ATTEND Obstetrics & Gynecology
CPT/HCPCS: 81001; 87086; 99213

== ENCOUNTER 2024-02-14 16:09 | Outpatient (CLI) | payer OTHER ==
[2024-02-14] MEDS: LACTATED RINGERS 1,000 ML BAG IV STA (16:40)
[2024-02-14 16:49] LABS: Appearance,Urine Clear (Clear); Bacteria,Urine Moderate /hpf; Bilirubin,Urine Negative (Negative); Blood,Urine Negative (Negative); Color,Urine Colorless; Glucose,Urine (UA) Negative (Negative); Ketones,Urine Negative (Negative); Leukocyte Esterase,Urine Small (Negative); Mucus,Urine Rare /hpf; Nitrite,Urine Negative (Negative); Protein,Urine Negative (Negative); RBC,Urine 2 /hpf (0-5); Specific Gravity,Urine 1.008 (1.001-1.035); Squamous Epithelial Cell,Urine 3 /hpf (0-4); Urobilinogen,Urine <2.0 mg/dL (<2.0); WBC,Urine 2 /hpf (0-5)
[2024-02-14 16:56] LABS: Basophils % (A) 0 %; Eosinophils # (A) 0.2 k/uL (0-0.7); Eosinophils % (A) 2 %; HCT 32.6 % (34.0-46.0); HGB 10.7 gm/dL (11.4-16.0); Lymphocytes # (A) 2.4 k/uL (1.0-4.8); Lymphocytes % (A) 25 %; MCH 27.3 pg (25.0-35.0); MCHC 32.8 g/dL (31.0-37.0); MCV 83.2 fL (80.0-100.0); Mean Platelet Volume 7.6; Monocytes # (A) 0.4 k/uL (0-1.0); Monocytes % (A) 4 %; Neutrophils # (A) 6.1 k/uL (1.3-7.7); Neutrophils % (A) 66 %; Platelet Count 281 k/uL (150-450); RBC 3.91 m/uL (3.80-5.40); RDW 14.4 % (11.5-15.5); WBC 9.3 k/uL (3.8-10.6)
[2024-02-14 17:33] VITALS: BP 118/72; PULSE 96; RESP 16; TEMP 96.8
== END 2024-02-14 17:45 | disposition home or self-care (01) ==
LOC: FBPOP 16:09
PROVIDERS: ATTEND Obstetrics & Gynecology
CPT/HCPCS: 36415; 81001; 85025; 87636; 96360